=== PATIENT | male | born 1945 | race Caucasian/White ===

== ENCOUNTER 2017-01-07 11:36 | Inpatient (IN) | payer OTHER ==
[~2017-01-07] VITALS: Ht 185.4 cm; Wt 136.6 kg
[~2017-01-07 11:36] MED LIST: ACTOS30 MG PO; ALPH-E400 UNIT PO; ALPHA LIPOIC A200 MG PO; APRESOLINE50 MG PO; ASPIRIN81 M2 PO; AVAPRO300 MG PO; BACTRIM,SEPT1 TABLET PO; CATAPRES0.1 MG PO; CIPRO500 MG PO; CLEOCIN150 MG PO; COUMADIN,JANTO1.5 MG PO; COUMADIN,JANTO2.5 MG PO; COUMADIN2 MG PO; EFFER-K 20 MEQ20 MEQ PO; ENALAPRIL MALEA20 M1 PO; ENALAPRIL MALEA20 MG PO; FISH OIL 1,2001 EAC4 PO; FLOMAX0.4 MG PO; FORMULA E400 UNIT PO; FUROSEMIDE80 MG PO; GLIMEPIRIDE2 MG PO; HUMALOG100 UNIT/1 SC; HYDRALAZINE HCL50 M1 PO; HYDRALAZINE HCL50 MG PO; JANUVIA100 MG PO; KLOR-CON M2020 MEQ PO; KLOR-CON20 MEQ PO; LANOXIN PO; LANOXIN,DIGIT0.25 MG PO; LANOXIN250 MCG PO; LASIX40 MG PO; LYRICA150 MG PO; METOPROLOL SUC100 MG PO; METOPROLOL TAR100 MG PO; NASAL SPRAY30 ML NS; NOVOLIN N100 UNITS/ SC; PRAVASTATIN SOD40 MG PO; PRAVASTATIN SOD80 MG PO; SPIRONOLACTONE MC; SPIRONOLACTONE25 MG PO; TAMSULOSIN HCL0.4 MG PO; TOPROL XL100 MG PO; TRICOR145 MG PO; TYLENOL EXTRA500 MG PO; VASOTEC10 MG PO; VITAMIN D22000 UNIT PO; VITAMIN E400 UNIT PO; ZETIA10 MG PO; [UNRECOGNIZED DRUG - OTHER] SQ
[2017-01-07 13:29] LABS: BASOPHIL COUNT 0.1 K/uL (0-0.1); EOSINOPHIL (%) 0 % (0-5); IMMATURE GRANULOCYTE (%) 1.8 % (0.0-0.7); IMMATURE GRANULOCYTE COUNT 0.7 K/uL; INSTRUMENT ABS NEUTROPHIL CT 33.5 K/uL; LYMPHOCYTE COUNT 0.7 K/uL (1.0-2.8); MEAN PLAT.VOLUME 10.8 uM^3 (9.0-12.4); MONOCYTE COUNT 4.3 K/uL (0-0.8); NEUTROPHIL (%) 85.3 % (45-76); NEUTROPHIL COUNT 33.5 K/uL (1.8-6.4); PLATELET COUNT 193 K/uL (156-360)
[2017-01-07 13:35] LABS: MCH 32.4 PG (29.0-34.0); MCHC 33.1 G/DL (30.0-36.0); MCV 97.8 FL (86-99); RBC DIS.WIDTH-CV 15.4 % (11.8-14.6); RED BLOOD COUNT 3.58 M/uL (4.00-5.50); WHITE BLOOD COUNT 39.3 K/uL (4.1-10.2)
[2017-01-07 13:36] LABS: PROTHROMBIN TIME 34.2 SEC (10.2-12.9)
[2017-01-07 13:38] LABS: PTT 37.3 SEC (25-37)
[2017-01-07 13:43] LABS: CHLORIDE 101 mEq/L (99-109); POTASSIUM 4.5 mEq/L (3.7-5.4); SODIUM 135 mEq/L (136-147)
[2017-01-07 13:45] LABS: GLUCOSE 215 mg/dL (70-99)
[2017-01-07 13:46] LABS: ANION GAP 13 MEQ/L (2-14)
[2017-01-07 13:49] LABS: ALKALINE PHOSPHATASE 51 IU/L (3-129); GFR ESTIMATE (CALCULATED) 26 mL/min/
[2017-01-07 13:50] LABS: UREA NITROGEN (BUN) 49 mg/dL (9-23)
[2017-01-07 14:01] LABS: TOTAL BILIRUBIN 1.7 mg/dL (0.0-1.0)
[2017-01-07 15:25] LABS: C-REACTIVE PROTEIN > 240.0 MG/L (0-10); SAMPLE HEMOLYSIS CHECK 0; SAMPLE ICTERIC CHECK 0; SAMPLE LIPEMIA CHECK 0
[2017-01-07] MEDS ORDERED: FUROSEMIDE80 MG PO (15:48)
[2017-01-07] MEDS ORDERED: HUMALOG100 UNIT/1 SC ×2 (15:49→15:51)
[2017-01-07] MEDS ORDERED: OXYBUTYNIN CHLO10 MG PO (15:56)
[2017-01-07] MEDS ORDERED: ALLOPURINOL300 MG PO (15:58)
[2017-01-07] MEDS ORDERED: ATORVASTATIN CA80 MG PO (15:59)
[2017-01-07] MEDS ORDERED: VITAMIN B-6100 MG PO (16:06)
[2017-01-07] MEDS ORDERED: NASAL SPRAY SIN30 ML BOTH NARES (16:10)
[2017-01-07] MEDS ORDERED: VITAMIN B-12250 MCG PO (16:10)
[2017-01-07 20:27] VITALS: BP 171/74
[2017-01-07 21:08] LABS: POINT-OF-CARE METER ID UU14174225
[2017-01-08] VITALS (7 sets, daily range): BP systolic 100–161; BP diastolic 48–67
[2017-01-08 07:07] LABS: MEAN PLAT.VOLUME 11.3 uM^3 (9.0-12.4); PLATELET COUNT 183 K/uL (156-360)
[2017-01-08 07:11] LABS: HEMATOCRIT 31.9 % (38.0-50.0); MCH 32.5 PG (29.0-34.0); MCHC 32.6 G/DL (30.0-36.0); MCV 99.7 FL (86-99); RBC DIS.WIDTH-CV 15.7 % (11.8-14.6); RBC DIS.WIDTH-SD 56.7 % (39-53)
[2017-01-08 07:17] LABS: WHITE BLOOD COUNT 35.4 K/uL (4.1-10.2)
[2017-01-08 07:20] LABS: INTER. NORMALIZED RATIO 2.8; PROTHROMBIN TIME 32.6 SEC (10.2-12.9)
[2017-01-08 07:27] LABS: ANION GAP 11 MEQ/L (2-14); CHLORIDE 103 MEQ/L (99-109); GFR ESTIMATE (CALCULATED) 21 mL/min/; GLUCOSE 121 mg/dL (70-99); POTASSIUM 4.2 MEQ/L (3.7-5.4); SAMPLE HEMOLYSIS CHECK 0; SAMPLE ICTERIC CHECK 0; SAMPLE LIPEMIA CHECK 0; SODIUM 139 MEQ/L (136-147); UREA NITROGEN (BUN) 58 mg/dL (9-23)
[2017-01-08 08:24] LABS: POINT-OF-CARE METER ID UU13113717
[2017-01-08 12:06] LABS: POINT-OF-CARE METER ID UU14174225
[2017-01-08 16:23] LABS: POINT-OF-CARE METER ID UU14174225
[2017-01-08 21:18] LABS: POINT-OF-CARE METER ID UU14174225
[2017-01-09 04:02] VITALS: BP 122/52
[2017-01-09 07:19] LABS: EOSINOPHIL (%) 0 % (0-5); IMMATURE GRANULOCYTE (%) 2.1 % (0.0-0.7); IMMATURE GRANULOCYTE COUNT 0.6 K/uL; INSTRUMENT ABS NEUTROPHIL CT 26.3 K/uL; LYMPHOCYTE COUNT 0.8 K/uL (1.0-2.8); MEAN PLAT.VOLUME 11.1 uM^3 (9.0-12.4); MONOCYTE (%) 9.2 % (3-12); MONOCYTE COUNT 2.8 K/uL (0-0.8); NEUTROPHIL (%) 86.1 % (45-76); NEUTROPHIL COUNT 26.3 K/uL (1.8-6.4); PLATELET COUNT 207 K/uL (156-360)
[2017-01-09 07:40] LABS: HEMATOCRIT 29.4 % (38.0-50.0); MCH 31.9 PG (29.0-34.0); MCHC 32.7 G/DL (30.0-36.0); MCV 97.7 FL (86-99); RBC DIS.WIDTH-CV 15.4 % (11.8-14.6); RBC DIS.WIDTH-SD 55.3 % (39-53); RED BLOOD COUNT 3.01 M/uL (4.00-5.50)
[2017-01-09 07:41] LABS: WHITE BLOOD COUNT 30.6 K/uL (4.1-10.2)
[2017-01-09 08:00] VITALS: BP 113/51
[2017-01-09 08:05] LABS: ANION GAP 12 MEQ/L (2-14); CHLORIDE 104 MEQ/L (99-109); GFR ESTIMATE (CALCULATED) 24 mL/min/; GLUCOSE 101 mg/dL (70-99); POTASSIUM 4.5 MEQ/L (3.7-5.4); SAMPLE HEMOLYSIS CHECK 0; SAMPLE ICTERIC CHECK 0; SAMPLE LIPEMIA CHECK 0; SODIUM 138 MEQ/L (136-147); UREA NITROGEN (BUN) 67 mg/dL (9-23)
[2017-01-09 11:45] LABS: POINT-OF-CARE METER ID UU14174225
[2017-01-09 12:00] VITALS: BP 116/58
[2017-01-09 12:18] LABS: INTER. NORMALIZED RATIO 2.5
[2017-01-09 16:10] VITALS: BP 178/77
[2017-01-09 16:12] LABS: POINT-OF-CARE METER ID UU13113717
[2017-01-09 19:32] VITALS: BP 146/61
[2017-01-09 20:55] LABS: POINT-OF-CARE METER ID UU13113717
[2017-01-09 23:59] VITALS: BP 130/58
[2017-01-10 04:09] VITALS: BP 114/50
[2017-01-10 07:10] LABS: INTER. NORMALIZED RATIO 2.8; PROTHROMBIN TIME 31.7 SEC (10.2-12.9)
[2017-01-10 07:39] LABS: ERTH.SED.RATE 79 MM/HR (0-20)
[2017-01-10 08:00] VITALS: BP 151/64
[2017-01-10 08:00] LABS: POINT-OF-CARE METER ID UU13113717
[2017-01-10 08:32] LABS: ANION GAP 10 MEQ/L (2-14); CHLORIDE 107 MEQ/L (99-109); POTASSIUM 4.5 MEQ/L (3.7-5.4); SAMPLE HEMOLYSIS CHECK 0; SAMPLE ICTERIC CHECK 0; SAMPLE LIPEMIA CHECK 0; SODIUM 138 MEQ/L (136-147)
[2017-01-10 08:37] LABS: GFR ESTIMATE (CALCULATED) 24 mL/min/; GLUCOSE 122 mg/dL (70-99); UREA NITROGEN (BUN) 70 mg/dL (9-23)
[2017-01-10 10:58] LABS: BASOPHIL COUNT 0.1 K/uL (0-0.1); EOSINOPHIL (%) 0.1 % (0-5); IMMATURE GRANULOCYTE (%) 0.8 % (0.0-0.7); IMMATURE GRANULOCYTE COUNT 0.2 K/uL; INSTRUMENT ABS NEUTROPHIL CT 21.6 K/uL; LYMPHOCYTE COUNT 0.8 K/uL (1.0-2.8); MCH 31.9 PG (29.0-34.0); MCHC 32.3 G/DL (30.0-36.0); MEAN PLAT.VOLUME 11.6 uM^3 (9.0-12.4); MONOCYTE (%) 9.7 % (3-12); MONOCYTE COUNT 2.4 K/uL (0-0.8); NEUTROPHIL (%) 86.1 % (45-76); NEUTROPHIL COUNT 21.6 K/uL (1.8-6.4); PLATELET COUNT 225 K/uL (156-360); RBC DIS.WIDTH-CV 15.8 % (11.8-14.6); RBC DIS.WIDTH-SD 56.2 % (39-53); RED BLOOD COUNT 3.13 M/uL (4.00-5.50); WHITE BLOOD COUNT 25.1 K/uL (4.1-10.2)
[2017-01-10 12:00] VITALS: BP 149/67
[2017-01-10 12:34] LABS: POINT-OF-CARE METER ID UU13113717
[2017-01-10 16:02] VITALS: BP 167/63
[2017-01-10 16:51] LABS: POINT-OF-CARE METER ID UU14174225
[2017-01-10 20:00] VITALS: BP 139/63
[2017-01-10 22:10] LABS: POINT-OF-CARE METER ID UU13113717
[2017-01-10 23:58] VITALS: BP 123/57
[2017-01-11 06:57] LABS: PROTHROMBIN TIME 34.7 SEC (10.2-12.9)
[2017-01-11 07:00] LABS: BASOPHIL COUNT 0.1 K/uL (0-0.1); EOSINOPHIL (%) 0 % (0-5); HEMATOCRIT 30.2 % (38.0-50.0); IMMATURE GRANULOCYTE (%) 1.2 % (0.0-0.7); IMMATURE GRANULOCYTE COUNT 0.4 K/uL; INSTRUMENT ABS NEUTROPHIL CT 25.3 K/uL; LYMPHOCYTE COUNT 0.6 K/uL (1.0-2.8); MCH 32.3 PG (29.0-34.0); MCHC 33.1 G/DL (30.0-36.0); MCV 97.4 FL (86-99); MEAN PLAT.VOLUME 10.9 uM^3 (9.0-12.4); MONOCYTE (%) 8.5 % (3-12); MONOCYTE COUNT 2.5 K/uL (0-0.8); NEUTROPHIL (%) 87.9 % (45-76); NEUTROPHIL COUNT 25.3 K/uL (1.8-6.4); PLATELET COUNT 239 K/uL (156-360); RBC DIS.WIDTH-CV 15.4 % (11.8-14.6); RBC DIS.WIDTH-SD 55.1 % (39-53); WHITE BLOOD COUNT 28.7 K/uL (4.1-10.2)
[2017-01-11 07:21] LABS: ANION GAP 10 MEQ/L (2-14); CHLORIDE 105 MEQ/L (99-109); GFR ESTIMATE (CALCULATED) 25 mL/min/; POTASSIUM 4.5 MEQ/L (3.7-5.4); SAMPLE HEMOLYSIS CHECK 0; SAMPLE ICTERIC CHECK 0; SAMPLE LIPEMIA CHECK 0; SODIUM 137 MEQ/L (136-147); UREA NITROGEN (BUN) 67 mg/dL (9-23)
[2017-01-11 07:33] LABS: GLUCOSE 78 mg/dL (70-99)
[2017-01-11 08:16] VITALS: BP 156/63
[2017-01-11 08:31] LABS: POINT-OF-CARE METER ID UU14174225
[2017-01-11 12:33] LABS: POINT-OF-CARE METER ID UU13113717
[2017-01-11 14:56] VITALS: BP 132/63
[2017-01-11 15:10] VITALS: BP 132/63
[2017-01-11 15:29] VITALS: BP 146/65
[2017-01-11 15:31] VITALS: BP 147/64
[2017-01-11 16:28] VITALS: BP 137/65
[2017-01-11 17:26] LABS: POINT-OF-CARE METER ID UU13113717
[2017-01-11 18:35] LABS: POINT-OF-CARE METER ID UU13113675; POINT-OF-CARE USER ID 515036437
[2017-01-11 19:30] LABS: POINT-OF-CARE METER ID UU13113675; POINT-OF-CARE USER ID 515036437
[2017-01-11 21:50] LABS: POINT-OF-CARE METER ID UU13113717
[2017-01-12 00:25] VITALS: BP 125/57
[2017-01-12 06:51] LABS: INTER. NORMALIZED RATIO 3.1
[2017-01-12 06:52] LABS: HEMATOCRIT 28.9 % (38.0-50.0); MCH 31.6 PG (29.0-34.0); MCHC 32.2 G/DL (30.0-36.0); MCV 98.3 FL (86-99); MEAN PLAT.VOLUME 10.6 uM^3 (9.0-12.4); NRBC (%) 0.1 /100 WBC (0-0); PLATELET COUNT 262 K/uL (156-360); RBC DIS.WIDTH-CV 15.4 % (11.8-14.6); RBC DIS.WIDTH-SD 55.9 % (39-53); RED BLOOD COUNT 2.94 M/uL (4.00-5.50)
[2017-01-12 07:13] LABS: ANION GAP 10 MEQ/L (2-14); CHLORIDE 106 MEQ/L (99-109); GFR ESTIMATE (CALCULATED) 30 mL/min/; POTASSIUM 4.4 MEQ/L (3.7-5.4); SAMPLE HEMOLYSIS CHECK 0; SAMPLE ICTERIC CHECK 0; SAMPLE LIPEMIA CHECK 0; SODIUM 140 MEQ/L (136-147); UREA NITROGEN (BUN) 70 mg/dL (9-23)
[2017-01-12 07:17] VITALS: BP 135/61
[2017-01-12 07:18] LABS: GLUCOSE 104 mg/dL (70-99)
[2017-01-12 12:57] LABS: POINT-OF-CARE METER ID UU13113717
[2017-01-12 13:17] VITALS: BP 185/82
[2017-01-12 15:07] VITALS: BP 129/58
[2017-01-12 18:00] LABS: POINT-OF-CARE METER ID UU13113717
[2017-01-12 19:58] LABS: POINT-OF-CARE METER ID UU14174225
[2017-01-12 21:28] LABS: POINT-OF-CARE METER ID UU13113717
[2017-01-13 01:09] VITALS: BP 122/52
[2017-01-13 06:57] LABS: HEMATOCRIT 27.3 % (38.0-50.0); MCH 31.4 PG (29.0-34.0); MCHC 32.2 G/DL (30.0-36.0); MCV 97.5 FL (86-99); MEAN PLAT.VOLUME 10.6 uM^3 (9.0-12.4); NRBC (%) 0.1 /100 WBC (0-0); PLATELET COUNT 296 K/uL (156-360); RBC DIS.WIDTH-CV 15.4 % (11.8-14.6); RBC DIS.WIDTH-SD 55.2 % (39-53)
[2017-01-13 07:02] VITALS: BP 136/63
[2017-01-13 07:30] LABS: ANION GAP 7 MEQ/L (2-14); CHLORIDE 106 MEQ/L (99-109); GFR ESTIMATE (CALCULATED) 33 mL/min/; POTASSIUM 4.8 MEQ/L (3.7-5.4); SAMPLE HEMOLYSIS CHECK 0; SAMPLE ICTERIC CHECK 0; SAMPLE LIPEMIA CHECK 0; SODIUM 139 MEQ/L (136-147); UREA NITROGEN (BUN) 70 mg/dL (9-23)
[2017-01-13 07:32] LABS: GLUCOSE 62 mg/dL (70-99)
[2017-01-13 07:34] LABS: INTER. NORMALIZED RATIO 3.5; PROTHROMBIN TIME 39.8 SEC (10.2-12.9)
[2017-01-13 11:59] LABS: POINT-OF-CARE METER ID UU13113717
[2017-01-13 12:18] LABS: MCV 98.3 FL (86-99)
[2017-01-13 16:36] VITALS: BP 155/77
[2017-01-13 16:53] LABS: POINT-OF-CARE METER ID UU14174225
[2017-01-13 21:13] LABS: POINT-OF-CARE METER ID UU14174225
[2017-01-14 00:21] VITALS: BP 141/63
[2017-01-14 06:53] LABS: HEMATOCRIT 28.3 % (38.0-50.0); MCH 31.6 PG (29.0-34.0); MCHC 32.5 G/DL (30.0-36.0); MCV 97.3 FL (86-99); MEAN PLAT.VOLUME 10.4 uM^3 (9.0-12.4); NRBC (%) 0.1 /100 WBC (0-0); PLATELET COUNT 348 K/uL (156-360); RBC DIS.WIDTH-CV 15.2 % (11.8-14.6); RBC DIS.WIDTH-SD 54.8 % (39-53); RED BLOOD COUNT 2.91 M/uL (4.00-5.50); WHITE BLOOD COUNT 21.4 K/uL (4.1-10.2)
[2017-01-14 06:59] LABS: INTER. NORMALIZED RATIO 3.3; PROTHROMBIN TIME 37.9 SEC (10.2-12.9)
[2017-01-14 07:25] LABS: ANION GAP 13 MEQ/L (2-14); C-REACTIVE PROTEIN > 240.0 MG/L (0-10); CHLORIDE 106 MEQ/L (99-109); GFR ESTIMATE (CALCULATED) 35 mL/min/ (58.99-99999); POTASSIUM 4.8 MEQ/L (3.7-5.4); SAMPLE HEMOLYSIS CHECK 0; SAMPLE ICTERIC CHECK 0; SAMPLE LIPEMIA CHECK 0; SODIUM 141 MEQ/L (136-147); UREA NITROGEN (BUN) 66 mg/dL (9-23)
[2017-01-14 07:29] LABS: GLUCOSE 123 mg/dL (70-99)
[2017-01-14 07:49] VITALS: BP 139/63
[2017-01-14 12:08] LABS: POINT-OF-CARE METER ID UU13113717
[2017-01-14 15:49] VITALS: BP 125/70
[2017-01-14 17:15] LABS: POINT-OF-CARE METER ID UU14174225
[2017-01-14 20:52] LABS: POINT-OF-CARE METER ID UU13113717
[2017-01-14 23:50] VITALS: BP 142/61
[2017-01-15 06:36] LABS: HEMATOCRIT 28.1 % (38.0-50.0); MCHC 32.4 G/DL (30.0-36.0); MCV 98.9 FL (86-99); MEAN PLAT.VOLUME 10.2 uM^3 (9.0-12.4); NRBC (%) 0.2 /100 WBC (0-0); PLATELET COUNT 367 K/uL (156-360); RBC DIS.WIDTH-CV 15.4 % (11.8-14.6); RBC DIS.WIDTH-SD 55.5 % (39-53); RED BLOOD COUNT 2.84 M/uL (4.00-5.50); WHITE BLOOD COUNT 21.2 K/uL (4.1-10.2)
[2017-01-15 06:51] LABS: PROTHROMBIN TIME 34.5 SEC (10.2-12.9)
[2017-01-15 06:57] VITALS: BP 138/63
[2017-01-15 07:01] LABS: ANION GAP 4 MEQ/L (2-14); CHLORIDE 106 MEQ/L (99-109); GFR ESTIMATE (CALCULATED) 38 mL/min/ (58.99-99999); GLUCOSE 98 mg/dL (70-99); POTASSIUM 5.5 MEQ/L (3.7-5.4); SAMPLE HEMOLYSIS CHECK 2; SAMPLE ICTERIC CHECK 0; SAMPLE LIPEMIA CHECK 0; SODIUM 137 MEQ/L (136-147); UREA NITROGEN (BUN) 60 mg/dL (9-23)
[2017-01-15 11:07] LABS: POINT-OF-CARE METER ID UU13113717
[2017-01-15 12:59] LABS: ANION GAP 8 MEQ/L (2-14); CHLORIDE 105 MEQ/L (99-109); GFR ESTIMATE (CALCULATED) 40 mL/min/ (58.99-99999); GLUCOSE 192 mg/dL (70-99); POTASSIUM 5.1 MEQ/L (3.7-5.4); SAMPLE HEMOLYSIS CHECK 0; SAMPLE ICTERIC CHECK 0; SAMPLE LIPEMIA CHECK 0; SODIUM 138 MEQ/L (136-147); UREA NITROGEN (BUN) 59 mg/dL (9-23)
[2017-01-15 15:07] VITALS: BP 140/81
[2017-01-15 16:14] LABS: POINT-OF-CARE METER ID UU13113717
[2017-01-15 21:12] LABS: POINT-OF-CARE METER ID UU13113717
[2017-01-16 00:15] VITALS: BP 151/72
[2017-01-16 06:11] LABS: HEMATOCRIT 28.4 % (38.0-50.0); MCH 32.6 PG (29.0-34.0); MCHC 33.1 G/DL (30.0-36.0); MCV 98.6 FL (86-99); MEAN PLAT.VOLUME 10.4 uM^3 (9.0-12.4); NRBC (%) 0.1 /100 WBC (0-0); PLATELET COUNT 396 K/uL (156-360); RBC DIS.WIDTH-CV 15.5 % (11.8-14.6); RED BLOOD COUNT 2.88 M/uL (4.00-5.50); WHITE BLOOD COUNT 21.4 K/uL (4.1-10.2)
[2017-01-16 06:29] LABS: INTER. NORMALIZED RATIO 2.6; PROTHROMBIN TIME 29.6 SEC (10.2-12.9)
[2017-01-16 06:40] LABS: ANION GAP 8 MEQ/L (2-14); CHLORIDE 106 MEQ/L (99-109); GFR ESTIMATE (CALCULATED) 43 mL/min/ (58.99-99999); GLUCOSE 68 mg/dL (70-99); POTASSIUM 5.4 MEQ/L (3.7-5.4); SAMPLE HEMOLYSIS CHECK 0; SAMPLE ICTERIC CHECK 0; SAMPLE LIPEMIA CHECK 0; SODIUM 140 MEQ/L (136-147); UREA NITROGEN (BUN) 55 mg/dL (9-23)
[2017-01-16 07:00] VITALS: BP 145/66
[2017-01-16 11:03] LABS: POINT-OF-CARE METER ID UU13113717
[2017-01-16 15:05] VITALS: BP 137/74
[2017-01-16 16:20] LABS: POINT-OF-CARE METER ID UU13113717
[2017-01-16 20:45] VITALS: BP 154/72
[2017-01-16 21:00] LABS: POINT-OF-CARE METER ID UU13113717
[2017-01-17 00:20] VITALS: BP 126/58
[2017-01-17 07:03] LABS: HEMATOCRIT 28.4 % (38.0-50.0); MCH 31.9 PG (29.0-34.0); MCHC 32.4 G/DL (30.0-36.0); MCV 98.6 FL (86-99); MEAN PLAT.VOLUME 10.1 uM^3 (9.0-12.4); PLATELET COUNT 391 K/uL (156-360); RBC DIS.WIDTH-CV 15.4 % (11.8-14.6); RBC DIS.WIDTH-SD 54.8 % (39-53); RED BLOOD COUNT 2.88 M/uL (4.00-5.50); WHITE BLOOD COUNT 19.1 K/uL (4.1-10.2)
[2017-01-17 07:36] LABS: POINT-OF-CARE METER ID UU13113717
[2017-01-17 07:37] VITALS: BP 165/78
[2017-01-17 07:40] LABS: INTER. NORMALIZED RATIO 2.1; PROTHROMBIN TIME 24.2 SEC (10.2-12.9)
[2017-01-17 07:41] LABS: ANION GAP 8 MEQ/L (2-14); CHLORIDE 105 MEQ/L (99-109); GFR ESTIMATE (CALCULATED) 46 mL/min/ (58.99-99999); POTASSIUM 5.5 MEQ/L (3.7-5.4); SAMPLE HEMOLYSIS CHECK 0; SAMPLE ICTERIC CHECK 0; SAMPLE LIPEMIA CHECK 0; SODIUM 138 MEQ/L (136-147); UREA NITROGEN (BUN) 48 mg/dL (9-23)
[2017-01-17 07:42] LABS: GLUCOSE 146 mg/dL (70-99)
[2017-01-17 11:26] LABS: POINT-OF-CARE METER ID UU13113717
[2017-01-17 12:28] LABS: POINT-OF-CARE METER ID UU14174225
[2017-01-17 14:40] LABS: ANION GAP 8 MEQ/L (2-14); CHLORIDE 104 MEQ/L (99-109); GFR ESTIMATE (CALCULATED) 49 mL/min/ (58.99-99999); GLUCOSE 119 mg/dL (70-99); SAMPLE HEMOLYSIS CHECK 1; SAMPLE ICTERIC CHECK 0; SAMPLE LIPEMIA CHECK 0; SODIUM 140 MEQ/L (136-147); UREA NITROGEN (BUN) 46 mg/dL (9-23)
[2017-01-17 16:56] VITALS: BP 145/83
[2017-01-17 17:20] LABS: POINT-OF-CARE METER ID UU14174225
[2017-01-17 20:36] LABS: POINT-OF-CARE METER ID UU14174225
[2017-01-18 00:33] VITALS: BP 143/63
[2017-01-18 06:37] LABS: HEMATOCRIT 28.5 % (38.0-50.0); MCH 31.7 PG (29.0-34.0); MCHC 31.6 G/DL (30.0-36.0); MCV 100.4 FL (86-99); MEAN PLAT.VOLUME 10.1 uM^3 (9.0-12.4); PLATELET COUNT 421 K/uL (156-360); RBC DIS.WIDTH-CV 15.4 % (11.8-14.6); RBC DIS.WIDTH-SD 56.4 % (39-53); RED BLOOD COUNT 2.84 M/uL (4.00-5.50)
[2017-01-18 07:00] LABS: INTER. NORMALIZED RATIO 1.9; PROTHROMBIN TIME 21.4 SEC (10.2-12.9)
[2017-01-18 07:08] LABS: ANION GAP 4 MEQ/L (2-14); CHLORIDE 106 MEQ/L (99-109); GFR ESTIMATE (CALCULATED) 49 mL/min/ (58.99-99999); POTASSIUM 4.9 MEQ/L (3.7-5.4); SAMPLE HEMOLYSIS CHECK 0; SAMPLE ICTERIC CHECK 0; SAMPLE LIPEMIA CHECK 0; SODIUM 141 MEQ/L (136-147); UREA NITROGEN (BUN) 43 mg/dL (9-23)
[2017-01-18 07:10] LABS: GLUCOSE 77 mg/dL (70-99)
[2017-01-18 07:42] VITALS: BP 151/67
[2017-01-18 08:17] LABS: POINT-OF-CARE METER ID UU13113717
[2017-01-18] MEDS ORDERED: ACIDOPHILUS LA1 EACH PO (11:48)
[2017-01-18] MEDS ORDERED: TRAMADOL HCL50 MG PO (11:49)
[2017-01-18] MEDS ORDERED: TYLENOL REGULA325 MG PO (11:49)
[2017-01-18 12:42] LABS: POINT-OF-CARE METER ID UU13113717
== END 2017-01-18 16:01 | DRG 982 ==
LOC: EME 11:36 → 5SOUTH 14:13 → EDOF 14:13 → ENRESERV 14:41 → 5SOUTH 18:04 → ENRESERV 18:10 → 5SOUTH 01-18 16:01
PROVIDERS: Hospitalist; Internal Medicine; Internal Medicine Infectious Disease; Nurse Practitioner Adult Health; Physician Assistant; Physician Assistant Medical
PROC: 30233K1 Transfusion of Nonautologous Frozen Plasma into Peripheral Vein, Percutaneous Approach (ICD-10-PCS; principal; 2017-01-11)
PROC: 0KBW0ZZ Excision of Left Foot Muscle, Open Approach (ICD-10-PCS; principal; 2017-01-11)
DX: E11.621 Type 2 diabetes mellitus with foot ulcer (principal); L97.529 Non-pressure chronic ulcer of other part of left foot with unspecified severity; I42.9 Cardiomyopathy, unspecified; E11.22 Type 2 diabetes mellitus with diabetic chronic kidney disease; E11.42 Type 2 diabetes mellitus with diabetic polyneuropathy; E11.51 Type 2 diabetes mellitus with diabetic peripheral angiopathy without gangrene; E11.628 Type 2 diabetes mellitus with other skin complications; I13.0 Hypertensive heart and chronic kidney disease with heart failure and stage 1 through stage 4 chronic kidney disease, or unspecified chronic kidney disease; I50.22 Chronic systolic (congestive) heart failure; I48.91 Unspecified atrial fibrillation; N18.4 Chronic kidney disease, stage 4 (severe); E87.5 Hyperkalemia; L03.116 Cellulitis of left lower limb; M25.562 Pain in left knee; E66.9 Obesity, unspecified; K59.00 Constipation, unspecified; D72.829 Elevated white blood cell count, unspecified; G89.29 Other chronic pain; M25.561 Pain in right knee; N20.0 Calculus of kidney; D64.9 Anemia, unspecified; E78.5 Hyperlipidemia, unspecified; L30.9 Dermatitis, unspecified; I25.10 Atherosclerotic heart disease of native coronary artery without angina pectoris; Z95.5 Presence of coronary angioplasty implant and graft; M79.605 Pain in left leg; L97.429 Non-pressure chronic ulcer of left heel and midfoot with unspecified severity; M17.10 Unilateral primary osteoarthritis, unspecified knee; M79.604 Pain in right leg; Z95.0 Presence of cardiac pacemaker; Z79.4 Long term (current) use of insulin; Z88.1 Allergy status to other antibiotic agents; Z88.8 Allergy status to other drugs, medicaments and biological substances; Z95.810 Presence of automatic (implantable) cardiac defibrillator; Z87.442 Personal history of urinary calculi; Z89.422 Acquired absence of other left toe(s); Z79.01 Long term (current) use of anticoagulants; Z68.39 Body mass index [BMI] 39.0-39.9, adult; Z85.820 Personal history of malignant melanoma of skin; Z87.891 Personal history of nicotine dependence; Z99.2 Dependence on renal dialysis; Z90.49 Acquired absence of other specified parts of digestive tract
CPT/HCPCS: 73560; 73630; 76937; 78315; 78999; 80048; 80048 91; 80053; 80069; 80202; 82948; 83605; 85014; 85018; 85025; 85027; 85610; 85651; 85730; 86140; 86850; 86900; 86901; 87040; 87070; 87075; 87076; 87077; 87147; 87186; 87205; 93005; 93926; 97530 GO; 97530 GP; 99281; 99285; A9503; C1894; J0610; J0690; J1815; J2250; J2543; J3010; J3370; J7030; J7040; J7050; P9017

== ENCOUNTER → 2017-02-09 | Outpatient (CLI) | payer OTHER ==
[~2017-02-09] MED LIST changes: +ACIDOPHILUS LA1 EACH PO; +ALLOPURINOL300 MG PO; +ATORVASTATIN CA80 MG PO; +NASAL SPRAY SIN30 ML BOTH NARES; +OXYBUTYNIN CHLO10 MG PO; +TRAMADOL HCL50 MG PO; +TYLENOL REGULA325 MG PO; +VITAMIN B-12250 MCG PO; +VITAMIN B-6100 MG PO
== END ==
LOC: PICC 12:42
DX: L03.116 Cellulitis of left lower limb (principal); L02.612 Cutaneous abscess of left foot
CPT/HCPCS: 76937; C1894

== ENCOUNTER → 2017-02-22 | Outpatient (CLI) | payer OTHER | LOC: PICC 08:19 | DX: L03.116 Cellulitis of left lower limb (principal); L02.612 Cutaneous abscess of left foot | CPT/HCPCS: 71045 ==

== ENCOUNTER 2017-03-11 15:37 | Inpatient (IN) | payer OTHER ==
[~2017-03-11] VITALS: Ht 188 cm; Wt 131.0 kg
[~2017-03-11 15:37] MED LIST changes: +HUMALOG100 UNIT/2 SC; +HUMULIN N100 UNIT/2 SC; -NOVOLIN N100 UNITS/ SC
[2017-03-11 17:12] LABS: BASOPHIL (%) 0.2 % (0-1); EOSINOPHIL (%) 2.7 % (0-5); EOSINOPHIL COUNT 0.3 K/uL (0-0.3); HEMATOCRIT 31.4 % (38.0-50.0); HEMOGLOBIN 9.9 G/DL (12.5-16.6); IMMATURE GRANULOCYTE (%) 0.5 % (0.0-0.7); LYMPHOCYTE (%) 9.4 % (15-42); LYMPHOCYTE COUNT 0.9 K/uL (1.0-2.8); MCH 29.6 PG (29.0-34.0); MCHC 31.5 G/DL (30.0-36.0); MCV 93.7 FL (86-99); MONOCYTE (%) 8.7 % (3-12); MONOCYTE COUNT 0.9 K/uL (0-0.8); NEUTROPHIL (%) 78.5 % (45-76); NEUTROPHIL COUNT 7.9 K/uL (1.8-6.4); PLATELET COUNT 181 K/uL (156-360); RBC DIS.WIDTH-CV 18.1 % (11.8-14.6); RBC DIS.WIDTH-SD 61.1 % (39-53); RED BLOOD COUNT 3.35 M/uL (4.00-5.50)
[2017-03-11 17:22] LABS: ALBUMIN 2.4 g/dL (3.2-4.8); CHLORIDE 100 mEq/L (99-109); SODIUM 141 mEq/L (136-147)
[2017-03-11 17:23] LABS: MAGNESIUM 1.7 mg/dL (1.3-2.7)
[2017-03-11 17:24] LABS: GLUCOSE 106 mg/dL (70-99); PTT 47.7 SEC (25-37); TOTAL PROTEIN 6.8 g/dL (6.4-8.3)
[2017-03-11 17:26] LABS: TOTAL BILIRUBIN 0.2 mg/dL (0.0-1.0)
[2017-03-11 17:28] LABS: ALKALINE PHOSPHATASE 156 IU/L (3-129); CREATININE 6.9 mg/dL (0.6-1.3); GFR ESTIMATE (CALCULATED) 8 mL/min/ (58.99-99999)
[2017-03-11 17:29] LABS: UREA NITROGEN (BUN) 92 mg/dL (9-23)
[2017-03-11 17:30] LABS: AST (GOT) 31 IU/L (2-34)
[2017-03-11 17:31] LABS: ALT (GPT) < 3 IU/L (3-49)
[2017-03-11 17:35] LABS: TROP-I INTERPRETATION NEGATIVE; TROPONIN-I 0.08 ng/mL (0.0-0.30)
[2017-03-11 17:36] LABS: DIGOXIN 1.7 ng/mL (0.8-2.0)
[2017-03-11] MEDS ORDERED: ALPHA LIPOIC A200 M1 PO (17:37)
[2017-03-11] MEDS ORDERED: COLACE100 MG PO (17:39)
[2017-03-11 17:40] LABS: INTER. NORMALIZED RATIO 5.7
[2017-03-11] MEDS ORDERED: FLORASTOR250 MG PO (17:40)
[2017-03-11] MEDS ORDERED: DEMADEX20 MG PO (17:43)
[2017-03-11] MEDS ORDERED: CEFAZOLIN SODIUM1 GM IV (17:44)
[2017-03-11] MEDS ORDERED: APRESOLINE25 MG PO ×2 (17:47→17:49)
[2017-03-11] MEDS ORDERED: LOTRIMIN AF90 GM TP (17:48)
[2017-03-11] MEDS ORDERED: DULCOLAX10 MG PR (17:48)
[2017-03-11] MEDS ORDERED: TYLENOL REGULA325 MG PO (17:48)
[2017-03-11] MEDS ORDERED: DUONEB 2.5-0.5 M3 ML AEROSOL (17:49)
[2017-03-11] MEDS ORDERED: MIRALAX17 GM PO (17:50)
[2017-03-11] MEDS ORDERED: PHILLIPS'400 MG/5 M PO (17:50)
[2017-03-11] MEDS ORDERED: WARFARIN SODIU2.5 MG PO (18:02)
[2017-03-11] MEDS ORDERED: MEPHYTON5 MG PO (18:02)
[2017-03-11 19:12] LABS: CREATINE KINASE 33 IU/L (1-294); URIC ACID 4.8 mg/dL (3.1-9.2)
[2017-03-11 22:31] VITALS: BP 160/74
[2017-03-12 00:41] VITALS: BP 130/71
[2017-03-12 04:12] VITALS: BP 131/69
[2017-03-12 06:40] LABS: HEMATOCRIT 29.7 % (38.0-50.0); HEMOGLOBIN 9.2 G/DL (12.5-16.6); MCH 28.8 PG (29.0-34.0); MCV 92.8 FL (86-99); PLATELET COUNT 157 K/uL (156-360); RBC DIS.WIDTH-CV 18.2 % (11.8-14.6); RBC DIS.WIDTH-SD 61.1 % (39-53); WHITE BLOOD COUNT 9.5 K/uL (4.1-10.2)
[2017-03-12 06:50] VITALS: BP 143/78
[2017-03-12 07:04] LABS: CHLORIDE 101 MEQ/L (99-109); CREATININE 6.9 MG/DL (0.6-1.3); GFR ESTIMATE (CALCULATED) 8 mL/min/ (58.99-99999); INTER. NORMALIZED RATIO 3.9; POTASSIUM 3.6 MEQ/L (3.7-5.4); SODIUM 142 MEQ/L (136-147); UREA NITROGEN (BUN) 92 mg/dL (9-23)
[2017-03-12 07:09] LABS: GLUCOSE 73 mg/dL (70-99)
[2017-03-12 11:25] VITALS: BP 135/66
[2017-03-12 14:58] LABS: IRON 52 MCG/DL (35-150); TRANSFERRIN (TIBC) 114.1 mg/dL (215-380); TRANSFERRIN SATUR. 46 % (20-55)
[2017-03-12 15:41] VITALS: BP 154/78
[2017-03-12 22:35] VITALS: BP 135/61
[2017-03-13 03:44] VITALS: BP 121/67
[2017-03-13 07:13] VITALS: BP 126/61
[2017-03-13 07:19] LABS: ALBUMIN 2.4 G/DL (3.2-4.8); CHLORIDE 101 MEQ/L (99-109); CREATININE 5.8 MG/DL (0.6-1.3); GFR ESTIMATE (CALCULATED) 10 mL/min/ (58.99-99999); GLUCOSE 72 mg/dL (70-99); PHOSPHORUS 5.6 mg/dL (2.5-4.9); POTASSIUM 3.7 MEQ/L (3.7-5.4); SODIUM 140 MEQ/L (136-147); UREA NITROGEN (BUN) 74 mg/dL (9-23)
[2017-03-13 08:50] LABS: HEMOGLOBIN 9.3 G/DL (12.5-16.6); MCH 29.2 PG (29.0-34.0); MCV 94.3 FL (86-99); PLATELET COUNT 151 K/uL (156-360); RBC DIS.WIDTH-CV 18.4 % (11.8-14.6); RBC DIS.WIDTH-SD 62.3 % (39-53); RED BLOOD COUNT 3.18 M/uL (4.00-5.50); WHITE BLOOD COUNT 9.2 K/uL (4.1-10.2)
[2017-03-13 08:54] LABS: INTACT PARATHYROID HORMONE 297 pg/mL (10-69)
[2017-03-13 11:26] VITALS: BP 163/75
[2017-03-13 12:16] LABS: HEPATITIS B SURFACE ANTIGEN Nonreactive
[2017-03-13 12:17] LABS: HEPATITIS B SURFACE ANTIBODY Nonreactive
[2017-03-13 15:50] VITALS: BP 145/75
[2017-03-13 19:50] VITALS: BP 131/62
[2017-03-14 01:45] VITALS: BP 112/58
[2017-03-14 03:50] VITALS: BP 128/73
[2017-03-14 06:05] LABS: HEMATOCRIT 29.2 % (38.0-50.0); HEMOGLOBIN 9.2 G/DL (12.5-16.6); MCH 29.3 PG (29.0-34.0); MCHC 31.5 G/DL (30.0-36.0); NRBC (%) 0.3 /100 WBC (0-0); PLATELET COUNT 156 K/uL (156-360); RBC DIS.WIDTH-CV 18.3 % (11.8-14.6); RBC DIS.WIDTH-SD 61.2 % (39-53); RED BLOOD COUNT 3.14 M/uL (4.00-5.50); WHITE BLOOD COUNT 9.6 K/uL (4.1-10.2)
[2017-03-14 06:29] LABS: ALBUMIN 2.4 G/DL (3.2-4.8); CHLORIDE 103 MEQ/L (99-109); CREATININE 5.3 MG/DL (0.6-1.3); GFR ESTIMATE (CALCULATED) 11 mL/min/ (58.99-99999); GLUCOSE 79 mg/dL (70-99); PHOSPHORUS 4.7 mg/dL (2.5-4.9); POTASSIUM 4.1 MEQ/L (3.7-5.4); SODIUM 138 MEQ/L (136-147); UREA NITROGEN (BUN) 60 mg/dL (9-23)
[2017-03-14 06:51] LABS: INTER. NORMALIZED RATIO 2.3
[2017-03-14 15:20] VITALS: BP 131/71
[2017-03-14 21:22] VITALS: BP 137/65
[2017-03-14 23:43] VITALS: BP 130/78
[2017-03-15 07:09] LABS: ALBUMIN 2.5 G/DL (3.2-4.8); CHLORIDE 99 MEQ/L (99-109); CREATININE 4.9 MG/DL (0.6-1.3); GFR ESTIMATE (CALCULATED) 13 mL/min/ (58.99-99999); PHOSPHORUS 4.8 mg/dL (2.5-4.9); POTASSIUM 4.8 MEQ/L (3.7-5.4); SODIUM 133 MEQ/L (136-147); UREA NITROGEN (BUN) 46 mg/dL (9-23)
[2017-03-15 07:11] LABS: GLUCOSE 122 mg/dL (70-99)
[2017-03-15 07:19] LABS: HEMATOCRIT 30.5 % (38.0-50.0); HEMOGLOBIN 9.4 G/DL (12.5-16.6); MCHC 30.8 G/DL (30.0-36.0); MCV 94.1 FL (86-99); NRBC (%) 0.6 /100 WBC (0-0); PLATELET COUNT 138 K/uL (156-360); RBC DIS.WIDTH-CV 18.4 % (11.8-14.6); RBC DIS.WIDTH-SD 62.1 % (39-53); RED BLOOD COUNT 3.24 M/uL (4.00-5.50); WHITE BLOOD COUNT 10.4 K/uL (4.1-10.2)
[2017-03-15 07:29] VITALS: BP 158/74
[2017-03-15 16:05] VITALS: BP 137/82
[2017-03-15 23:05] VITALS: BP 123/64
[2017-03-16 06:38] LABS: HEMOGLOBIN 9.8 G/DL (12.5-16.6); MCH 29.9 PG (29.0-34.0); MCHC 31.6 G/DL (30.0-36.0); MCV 94.5 FL (86-99); NRBC (%) 1.5 /100 WBC (0-0); PLATELET COUNT 143 K/uL (156-360); RBC DIS.WIDTH-CV 18.6 % (11.8-14.6); RBC DIS.WIDTH-SD 63.5 % (39-53); RED BLOOD COUNT 3.28 M/uL (4.00-5.50); WHITE BLOOD COUNT 9.2 K/uL (4.1-10.2)
[2017-03-16 07:01] LABS: INTER. NORMALIZED RATIO 2.4
[2017-03-16 07:02] LABS: ALBUMIN 2.6 G/DL (3.2-4.8); CHLORIDE 98 MEQ/L (99-109); GFR ESTIMATE (CALCULATED) 10 mL/min/ (58.99-99999); PHOSPHORUS 6.1 mg/dL (2.5-4.9); POTASSIUM 5.1 MEQ/L (3.7-5.4); SODIUM 134 MEQ/L (136-147); UREA NITROGEN (BUN) 55 mg/dL (9-23)
[2017-03-16 07:03] LABS: GLUCOSE 77 mg/dL (70-99)
[2017-03-16 08:00] VITALS: BP 139/72
[2017-03-16 16:17] VITALS: BP 166/74
[2017-03-17 00:38] VITALS: BP 135/63
[2017-03-17 06:02] VITALS: BP 124/58
[2017-03-17 06:46] LABS: BASOPHIL (%) 0.3 % (0-1); EOSINOPHIL (%) 0.7 % (0-5); EOSINOPHIL COUNT 0.1 K/uL (0-0.3); HEMATOCRIT 29.5 % (38.0-50.0); HEMOGLOBIN 9.4 G/DL (12.5-16.6); IMMATURE GRANULOCYTE (%) 0.8 % (0.0-0.7); LYMPHOCYTE (%) 4.6 % (15-42); LYMPHOCYTE COUNT 0.5 K/uL (1.0-2.8); MCH 29.7 PG (29.0-34.0); MCHC 31.9 G/DL (30.0-36.0); MCV 93.4 FL (86-99); MONOCYTE (%) 8.8 % (3-12); NEUTROPHIL (%) 84.8 % (45-76); NEUTROPHIL COUNT 9.6 K/uL (1.8-6.4); PLATELET COUNT 147 K/uL (156-360); RBC DIS.WIDTH-CV 18.8 % (11.8-14.6); RBC DIS.WIDTH-SD 62.6 % (39-53); RED BLOOD COUNT 3.16 M/uL (4.00-5.50); WHITE BLOOD COUNT 11.3 K/uL (4.1-10.2)
[2017-03-17 06:50] LABS: INTER. NORMALIZED RATIO 2.9
[2017-03-17 07:11] LABS: ALBUMIN 2.4 G/DL (3.2-4.8); ALBUMIN 2.6 G/DL (3.2-4.8); ALKALINE PHOSPHATASE 161 IU/L (3-129); ALT (GPT) 3 IU/L (3-49); AST (GOT) 33 IU/L (2-34); CHLORIDE 96 MEQ/L (99-109); CHLORIDE 97 MEQ/L (99-109); GFR ESTIMATE (CALCULATED) 13 mL/min/ (58.99-99999); GLUCOSE 88 mg/dL (70-99); GLUCOSE 91 mg/dL (70-99); PHOSPHORUS 4.6 mg/dL (2.5-4.9); POTASSIUM 4.4 MEQ/L (3.7-5.4); POTASSIUM 4.6 MEQ/L (3.7-5.4); SODIUM 131 MEQ/L (136-147); SODIUM 133 MEQ/L (136-147); UREA NITROGEN (BUN) 38 mg/dL (9-23); UREA NITROGEN (BUN) 40 mg/dL (9-23)
[2017-03-17 07:12] LABS: CREATININE 4.8 MG/DL (0.6-1.3)
[2017-03-17 07:13] LABS: CREATININE 4.7 MG/DL (0.6-1.3); GFR ESTIMATE (CALCULATED) 13 mL/min/ (58.99-99999); TOTAL BILIRUBIN 0.5 MG/DL (0.0-1.0); TOTAL PROTEIN 7.1 G/DL (6.4-8.3)
[2017-03-17 07:28] VITALS: BP 137/69
[2017-03-17 11:12] VITALS: BP 147/77
[2017-03-17 16:51] VITALS: BP 145/74
[2017-03-17 23:44] VITALS: BP 128/70
[2017-03-18 00:22] VITALS: BP 120/64
[2017-03-18 06:57] LABS: INTER. NORMALIZED RATIO 3.3
[2017-03-18 07:47] VITALS: BP 152/79
[2017-03-18 23:02] VITALS: BP 137/60
[2017-03-19 08:25] LABS: BASOPHIL (%) 0.2 % (0-1); EOSINOPHIL (%) 0.6 % (0-5); EOSINOPHIL COUNT 0.1 K/uL (0-0.3); HEMATOCRIT 30.2 % (38.0-50.0); HEMOGLOBIN 9.5 G/DL (12.5-16.6); IMMATURE GRANULOCYTE (%) 0.6 % (0.0-0.7); LYMPHOCYTE (%) 6.5 % (15-42); LYMPHOCYTE COUNT 0.7 K/uL (1.0-2.8); MCH 29.1 PG (29.0-34.0); MCHC 31.5 G/DL (30.0-36.0); MCV 92.6 FL (86-99); MONOCYTE (%) 8.3 % (3-12); MONOCYTE COUNT 0.9 K/uL (0-0.8); NEUTROPHIL (%) 83.8 % (45-76); NEUTROPHIL COUNT 8.7 K/uL (1.8-6.4); NRBC (%) 0.4 /100 WBC (0-0); PLATELET COUNT 182 K/uL (156-360); RBC DIS.WIDTH-CV 19.4 % (11.8-14.6); RED BLOOD COUNT 3.26 M/uL (4.00-5.50); WHITE BLOOD COUNT 10.4 K/uL (4.1-10.2)
[2017-03-19 08:46] LABS: ALBUMIN 2.8 G/DL (3.2-4.8); ALKALINE PHOSPHATASE 177 IU/L (3-129); ALT (GPT) 3 IU/L (3-49); AST (GOT) 35 IU/L (2-34); CHLORIDE 92 MEQ/L (99-109); CREATININE 5.3 MG/DL (0.6-1.3); GFR ESTIMATE (CALCULATED) 11 mL/min/ (58.99-99999); GLUCOSE 131 mg/dL (70-99); POTASSIUM 4.4 MEQ/L (3.7-5.4); SODIUM 127 MEQ/L (136-147); TOTAL BILIRUBIN 0.6 MG/DL (0.0-1.0); TOTAL PROTEIN 7.1 G/DL (6.4-8.3); UREA NITROGEN (BUN) 46 mg/dL (9-23)
[2017-03-19 10:49] LABS: INTER. NORMALIZED RATIO 3.7
[2017-03-19 11:32] VITALS: BP 159/72
[2017-03-19 16:39] VITALS: BP 157/74
[2017-03-19 23:35] VITALS: BP 133/74
[2017-03-20 06:54] LABS: INTER. NORMALIZED RATIO 3.7
[2017-03-20 09:36] VITALS: BP 143/69
[2017-03-20 16:00] VITALS: BP 155/78
[2017-03-20 23:35] VITALS: BP 126/60
[2017-03-21 07:29] VITALS: BP 166/80
[2017-03-21 08:28] LABS: BASOPHIL (%) 0.3 % (0-1); EOSINOPHIL (%) 1.4 % (0-5); EOSINOPHIL COUNT 0.2 K/uL (0-0.3); HEMOGLOBIN 9.3 G/DL (12.5-16.6); IMMATURE GRANULOCYTE (%) 0.8 % (0.0-0.7); LYMPHOCYTE (%) 5.8 % (15-42); LYMPHOCYTE COUNT 0.6 K/uL (1.0-2.8); MCV 93.5 FL (86-99); MONOCYTE (%) 10.5 % (3-12); MONOCYTE COUNT 1.1 K/uL (0-0.8); NEUTROPHIL (%) 81.2 % (45-76); NEUTROPHIL COUNT 8.6 K/uL (1.8-6.4); NRBC (%) 0.2 /100 WBC (0-0); PLATELET COUNT 194 K/uL (156-360); RBC DIS.WIDTH-CV 19.8 % (11.8-14.6); RBC DIS.WIDTH-SD 65.1 % (39-53); RED BLOOD COUNT 3.21 M/uL (4.00-5.50); WHITE BLOOD COUNT 10.5 K/uL (4.1-10.2)
[2017-03-21 08:35] LABS: INTER. NORMALIZED RATIO 3.3
[2017-03-21 08:46] LABS: CHLORIDE 96 MEQ/L (99-109); CREATININE 5.3 MG/DL (0.6-1.3); GFR ESTIMATE (CALCULATED) 11 mL/min/ (58.99-99999); GLUCOSE 127 mg/dL (70-99); POTASSIUM 4.1 MEQ/L (3.7-5.4); SODIUM 132 MEQ/L (136-147); UREA NITROGEN (BUN) 47 mg/dL (9-23)
[2017-03-21 11:17] LABS: PHOSPHORUS 4.9 mg/dL (2.5-4.9)
[2017-03-21 12:16] VITALS: BP 150/69
[2017-03-21 16:40] VITALS: BP 130/69
[2017-03-21 23:33] VITALS: BP 160/72
[2017-03-22 00:28] VITALS: BP 139/65
[2017-03-22 02:07] LABS: C DIFF TOXIN NEGATIVE (NEGATIVE)
[2017-03-22 06:21] LABS: INTER. NORMALIZED RATIO 3.1
[2017-03-22 07:04] VITALS: BP 157/74
[2017-03-22 11:30] VITALS: BP 139/60
[2017-03-22] MEDS ORDERED: DIGOXIN125 MCG PO (12:39)
[2017-03-22] MEDS ORDERED: VENLAFAXINE HCL75 M3 PO (12:42)
[2017-03-22] MEDS ORDERED: FUROSEMIDE80 MG PO (12:43)
[2017-03-22] MEDS ORDERED: HYDROCODON-ACE1 EAC7 PO (12:45)
[2017-03-22 15:55] VITALS: BP 153/72
[2017-03-23 00:23] VITALS: BP 160/85
[2017-03-23 06:35] VITALS: BP 150/68
[2017-03-23 08:41] LABS: HEMATOCRIT 30.4 % (38.0-50.0); HEMOGLOBIN 9.5 G/DL (12.5-16.6); MCH 29.5 PG (29.0-34.0); MCHC 31.3 G/DL (30.0-36.0); MCV 94.4 FL (86-99); PLATELET COUNT 199 K/uL (156-360); RBC DIS.WIDTH-CV 19.9 % (11.8-14.6); RBC DIS.WIDTH-SD 67.9 % (39-53); RED BLOOD COUNT 3.22 M/uL (4.00-5.50); WHITE BLOOD COUNT 10.1 K/uL (4.1-10.2)
[2017-03-23 08:47] LABS: INTER. NORMALIZED RATIO 3.2
[2017-03-23 08:57] LABS: ALBUMIN 2.8 G/DL (3.2-4.8); CHLORIDE 94 MEQ/L (99-109); CREATININE 5.5 MG/DL (0.6-1.3); GFR ESTIMATE (CALCULATED) 11 mL/min/ (58.99-99999); GLUCOSE 122 mg/dL (70-99); PHOSPHORUS 5.1 mg/dL (2.5-4.9); POTASSIUM 3.7 MEQ/L (3.7-5.4); SODIUM 130 MEQ/L (136-147); UREA NITROGEN (BUN) 42 mg/dL (9-23)
[2017-03-23 12:18] VITALS: BP 151/69
[2017-03-23 14:55] VITALS: BP 139/62
== END 2017-03-23 16:23 | DRG 673 ==
LOC: EME 15:37 → 5EAST 19:45 → EDOF 19:45 → ENRESERV 19:53 → 5EAST 22:20
PROVIDERS: Emergency Medicine; Hospitalist; Internal Medicine; Internal Medicine Nephrology
PROC: 5A1D70Z Performance of Urinary Filtration, Intermittent, Less than 6 Hours Per Day (ICD-10-PCS; principal; 2017-03-12)
PROC: 02HV33Z Insertion of Infusion Device into Superior Vena Cava, Percutaneous Approach (ICD-10-PCS; principal; 2017-03-12)
PROC: 02HV33Z Insertion of Infusion Device into Superior Vena Cava, Percutaneous Approach (ICD-10-PCS; 2017-03-18)
PROC: 0JH63XZ Insertion of Tunneled Vascular Access Device into Chest Subcutaneous Tissue and Fascia, Percutaneous Approach (ICD-10-PCS; 2017-03-18)
DX: N17.0 Acute kidney failure with tubular necrosis (principal); I50.23 Acute on chronic systolic (congestive) heart failure; I13.0 Hypertensive heart and chronic kidney disease with heart failure and stage 1 through stage 4 chronic kidney disease, or unspecified chronic kidney disease; L03.116 Cellulitis of left lower limb; I42.9 Cardiomyopathy, unspecified; T81.89XA Other complications of procedures, not elsewhere classified, initial encounter; I48.91 Unspecified atrial fibrillation; E66.9 Obesity, unspecified; D68.32 Hemorrhagic disorder due to extrinsic circulating anticoagulants; T45.515A Adverse effect of anticoagulants, initial encounter; Z95.810 Presence of automatic (implantable) cardiac defibrillator; Z99.2 Dependence on renal dialysis; Z89.422 Acquired absence of other left toe(s); Z85.820 Personal history of malignant melanoma of skin; I27.20 Pulmonary hypertension, unspecified; L02.612 Cutaneous abscess of left foot; E87.6 Hypokalemia; E11.22 Type 2 diabetes mellitus with diabetic chronic kidney disease; E11.21 Type 2 diabetes mellitus with diabetic nephropathy; N18.4 Chronic kidney disease, stage 4 (severe); D63.1 Anemia in chronic kidney disease; N25.81 Secondary hyperparathyroidism of renal origin; E03.9 Hypothyroidism, unspecified; M86.172 Other acute osteomyelitis, left ankle and foot; E78.5 Hyperlipidemia, unspecified; E87.1 Hypo-osmolality and hyponatremia; F32.9 Major depressive disorder, single episode, unspecified; I25.10 Atherosclerotic heart disease of native coronary artery without angina pectoris; R04.0 Epistaxis; N40.0 Benign prostatic hyperplasia without lower urinary tract symptoms; Z87.891 Personal history of nicotine dependence; E55.9 Vitamin D deficiency, unspecified; Z79.01 Long term (current) use of anticoagulants; B95.61 Methicillin susceptible Staphylococcus aureus infection as the cause of diseases classified elsewhere; Z79.4 Long term (current) use of insulin; Z68.37 Body mass index [BMI] 37.0-37.9, adult
CPT/HCPCS: 71045; 76770; 80048; 80053; 80069; 80162; 81003; 82306; 82330; 82436; 82550 91; 82570; 82948; 83540; 83605; 83735; 83880; 83970; 84100; 84156; 84300; 84466; 84484; 84540; 84550; 85025; 85027; 85610; 85730; 86140; 86706; 87040; 87340; 87493; 93005; 93306; 94640; 99202; 99281; 99285; C1750; C1752; J0690; J0881; J1644; J1815; J2250; J3010; J7030; S0020

== ENCOUNTER 2017-04-19 15:31 | Emergency (ER) | payer OTHER ==
[~2017-04-19] VITALS: Ht 188 cm; Wt 130.9 kg
[~2017-04-19 15:31] MED LIST changes: +ALPHA LIPOIC A200 M1 PO; +APRESOLINE25 MG PO; +CEFAZOLIN SODIUM1 GM IV; +COLACE100 MG PO; +DEMADEX20 MG PO; +DIGOXIN125 MCG PO; +DULCOLAX10 MG PR; +DUONEB 2.5-0.5 M3 ML AEROSOL; +FLORASTOR250 MG PO; +HYDROCODON-ACE1 EAC7 PO; +LOTRIMIN AF90 GM TP; +MEPHYTON5 MG PO; +MIRALAX17 GM PO; -OXYBUTYNIN CHLO10 MG PO; +OXYBUTYNIN CHLOR5 MG PO; +PHILLIPS'400 MG/5 M PO; +VENLAFAXINE HCL75 M3 PO; -VITAMIN B-12250 MCG PO; +VITAMIN B-12500 MC3 PO; +WARFARIN SODIU2.5 MG PO
[2017-04-19 17:17] LABS: INTER. NORMALIZED RATIO 5.4
[2017-04-19 18:28] VITALS: BP 183/98
[2017-04-20] MEDS ORDERED: ADVAIR 500/501 DISK IH (00:38)
[2017-04-20] MEDS ORDERED: VITAMIN B-6100 MG PO ×2 (00:47→01:06)
[2017-04-20] MEDS ORDERED: COUMADIN1 MG PO (00:58)
[2017-04-20] MEDS ORDERED: HUMULIN N100 UNITS/ SC (01:00)
[2017-04-20] MEDS ORDERED: TRAZODONE HCL50 MG PO (01:02)
[2017-04-20] MEDS ORDERED: ALPHA LIPOIC A200 M1 PO (01:07)
== END 2017-04-19 18:29 | disposition home or self-care (01) ==
LOC: EME 15:31
PROVIDERS: Emergency Medicine
DX: S00.03XA Contusion of scalp, initial encounter (principal); R79.1 Abnormal coagulation profile; W18.30XA Fall on same level, unspecified, initial encounter; Z79.01 Long term (current) use of anticoagulants; E11.22 Type 2 diabetes mellitus with diabetic chronic kidney disease; I13.0 Hypertensive heart and chronic kidney disease with heart failure and stage 1 through stage 4 chronic kidney disease, or unspecified chronic kidney disease; I50.9 Heart failure, unspecified; N18.9 Chronic kidney disease, unspecified; Z79.4 Long term (current) use of insulin; I73.9 Peripheral vascular disease, unspecified; E78.5 Hyperlipidemia, unspecified; J44.9 Chronic obstructive pulmonary disease, unspecified; I48.91 Unspecified atrial fibrillation; I25.10 Atherosclerotic heart disease of native coronary artery without angina pectoris; Z95.5 Presence of coronary angioplasty implant and graft; Z95.0 Presence of cardiac pacemaker; Z85.820 Personal history of malignant melanoma of skin; Z88.8 Allergy status to other drugs, medicaments and biological substances; Z87.891 Personal history of nicotine dependence
CPT/HCPCS: 70450; 72125; 85610; 99281; 99285

== ENCOUNTER 2017-04-19 21:00 | Inpatient (IN) | payer OTHER ==
[~2017-04-19] VITALS: Ht 188 cm; Wt 168.0 kg
[~2017-04-19 21:00] MED LIST changes: +OXYBUTYNIN CHLO10 MG PO; -OXYBUTYNIN CHLOR5 MG PO
[2017-04-19 22:29] LABS: HEMATOCRIT 31.1 % (38.0-50.0); HEMOGLOBIN 10.2 G/DL (12.5-16.6); MCH 30.4 PG (29.0-34.0); MCHC 32.8 G/DL (30.0-36.0); NRBC (%) 0.2 /100 WBC (0-0); PLATELET COUNT 235 K/uL (156-360); RBC DIS.WIDTH-CV 21.1 % (11.8-14.6); RBC DIS.WIDTH-SD 69.3 % (39-53); RED BLOOD COUNT 3.36 M/uL (4.00-5.50); WHITE BLOOD COUNT 8.8 K/uL (4.1-10.2)
[2017-04-19 22:41] LABS: MCV 92.6 FL (86-99)
[2017-04-19 22:44] LABS: INTER. NORMALIZED RATIO 5.6
[2017-04-19 22:46] LABS: CHLORIDE 99 mEq/L (99-109); POTASSIUM 4.4 mEq/L (3.7-5.4); SODIUM 135 mEq/L (136-147)
[2017-04-19 22:47] LABS: GLUCOSE 142 mg/dL (70-99)
[2017-04-19 22:51] LABS: CREATININE 3.5 mg/dL (0.6-1.3); GFR ESTIMATE (CALCULATED) 18 mL/min/ (58.99-99999)
[2017-04-19 22:59] LABS: UREA NITROGEN (BUN) 48 mg/dL (9-23)
[2017-04-20] VITALS (7 sets, daily range): BP systolic 114–170; BP diastolic 58–80
[2017-04-20] MEDS ORDERED: ADVAIR 500/501 DISK IH (00:38)
[2017-04-20] MEDS ORDERED: VITAMIN B-6100 MG PO ×2 (00:47→01:06)
[2017-04-20] MEDS ORDERED: COUMADIN1 MG PO (00:58)
[2017-04-20] MEDS ORDERED: HUMULIN N100 UNITS/ SC (01:00)
[2017-04-20] MEDS ORDERED: TRAZODONE HCL50 MG PO (01:02)
[2017-04-20] MEDS ORDERED: ALPHA LIPOIC A600 MG PO (01:07)
[2017-04-20 04:37] LABS: BASOPHIL (%) 0.2 % (0-1); EOSINOPHIL (%) 0.1 % (0-5); IMMATURE GRANULOCYTE (%) 0.9 % (0.0-0.7); LYMPHOCYTE (%) 8.8 % (15-42); LYMPHOCYTE COUNT 0.8 K/uL (1.0-2.8); MONOCYTE (%) 8.4 % (3-12); MONOCYTE COUNT 0.7 K/uL (0-0.8); NEUTROPHIL (%) 81.6 % (45-76); NEUTROPHIL COUNT 7.2 K/uL (1.8-6.4)
[2017-04-20 07:38] LABS: HEMATOCRIT 30.1 % (38.0-50.0); HEMOGLOBIN 9.4 G/DL (12.5-16.6); MCHC 31.2 G/DL (30.0-36.0); MCV 96.2 FL (86-99); NRBC (%) 0.2 /100 WBC (0-0); PLATELET COUNT 210 K/uL (156-360); RBC DIS.WIDTH-CV 21.4 % (11.8-14.6); RBC DIS.WIDTH-SD 73.7 % (39-53); RED BLOOD COUNT 3.13 M/uL (4.00-5.50)
[2017-04-20 07:54] LABS: ALBUMIN 2.6 G/DL (3.2-4.8); CHLORIDE 98 MEQ/L (99-109); POTASSIUM 4.6 MEQ/L (3.7-5.4); SODIUM 134 MEQ/L (136-147); TOTAL BILIRUBIN 0.7 MG/DL (0.0-1.0)
[2017-04-20 07:59] LABS: ALKALINE PHOSPHATASE 120 IU/L (3-129); ALT (GPT) 21 IU/L (3-49); AST (GOT) 27 IU/L (2-34); CREATININE 3.5 MG/DL (0.6-1.3); GFR ESTIMATE (CALCULATED) 18 mL/min/ (58.99-99999); GLUCOSE 119 mg/dL (70-99); TOTAL PROTEIN 5.9 G/DL (6.4-8.3); UREA NITROGEN (BUN) 48 mg/dL (9-23)
[2017-04-20 08:03] LABS: INTER. NORMALIZED RATIO 4.7
[2017-04-20 15:55] LABS: INTER. NORMALIZED RATIO 3.8
[2017-04-21 00:19] VITALS: BP 123/60
[2017-04-21 04:38] VITALS: BP 123/59
[2017-04-21 05:05] LABS: HEMATOCRIT 27.3 % (38.0-50.0); HEMOGLOBIN 8.6 G/DL (12.5-16.6); MCH 29.8 PG (29.0-34.0); MCHC 31.5 G/DL (30.0-36.0); MCV 94.5 FL (86-99); NRBC (%) 0.6 /100 WBC (0-0); PLATELET COUNT 216 K/uL (156-360); RBC DIS.WIDTH-CV 21.1 % (11.8-14.6); RBC DIS.WIDTH-SD 70.4 % (39-53); RED BLOOD COUNT 2.89 M/uL (4.00-5.50); WHITE BLOOD COUNT 10.2 K/uL (4.1-10.2)
[2017-04-21 05:13] LABS: INTER. NORMALIZED RATIO 3.8
[2017-04-21 05:32] LABS: CHLORIDE 95 MEQ/L (99-109); CREATININE 3.7 MG/DL (0.6-1.3); GFR ESTIMATE (CALCULATED) 17 mL/min/ (58.99-99999); GLUCOSE 93 mg/dL (70-99); PHOSPHORUS 4.9 mg/dL (2.5-4.9); POTASSIUM 4.3 MEQ/L (3.7-5.4); SODIUM 132 MEQ/L (136-147); UREA NITROGEN (BUN) 55 mg/dL (9-23)
[2017-04-21 07:00] VITALS: BP 122/89
[2017-04-21 11:14] LABS: IRON 42 MCG/DL (35-150); TRANSFERRIN (TIBC) 143.5 mg/dL (215-380); TRANSFERRIN SATUR. 29 % (20-55)
[2017-04-21 11:51] VITALS: BP 122/59
[2017-04-21 16:19] VITALS: BP 143/65
[2017-04-21 20:17] VITALS: BP 111/89
[2017-04-22 00:23] VITALS: BP 129/60
[2017-04-22 04:57] LABS: HEMATOCRIT 27.1 % (38.0-50.0); HEMOGLOBIN 8.7 G/DL (12.5-16.6); MCHC 32.1 G/DL (30.0-36.0); MCV 93.4 FL (86-99); NRBC (%) 0.8 /100 WBC (0-0); PLATELET COUNT 218 K/uL (156-360); RBC DIS.WIDTH-CV 21.2 % (11.8-14.6); RBC DIS.WIDTH-SD 69.4 % (39-53); WHITE BLOOD COUNT 8.7 K/uL (4.1-10.2)
[2017-04-22 05:26] LABS: ALBUMIN 2.6 G/DL (3.2-4.8); CHLORIDE 94 MEQ/L (99-109); CREATININE 3.7 MG/DL (0.6-1.3); GFR ESTIMATE (CALCULATED) 17 mL/min/ (58.99-99999); GLUCOSE 95 mg/dL (70-99); PHOSPHORUS 4.9 mg/dL (2.5-4.9); POTASSIUM 4.1 MEQ/L (3.7-5.4); SODIUM 131 MEQ/L (136-147); UREA NITROGEN (BUN) 51 mg/dL (9-23)
[2017-04-22 07:31] VITALS: BP 126/63
[2017-04-22 10:27] VITALS: BP 133/65
[2017-04-22 10:30] LABS: INTER. NORMALIZED RATIO 3.2
[2017-04-22 15:59] VITALS: BP 143/78
[2017-04-23 00:45] VITALS: BP 134/63
[2017-04-23 05:15] VITALS: BP 137/67
[2017-04-23 06:21] LABS: HEMATOCRIT 27.8 % (38.0-50.0); MCHC 32.4 G/DL (30.0-36.0); MCV 92.7 FL (86-99); NRBC (%) 1.8 /100 WBC (0-0); PLATELET COUNT 241 K/uL (156-360); RBC DIS.WIDTH-CV 21.2 % (11.8-14.6); RBC DIS.WIDTH-SD 69.5 % (39-53); WHITE BLOOD COUNT 8.3 K/uL (4.1-10.2)
[2017-04-23 06:43] LABS: ALBUMIN 2.7 G/DL (3.2-4.8); CHLORIDE 93 MEQ/L (99-109); CREATININE 3.9 MG/DL (0.6-1.3); GFR ESTIMATE (CALCULATED) 16 mL/min/ (58.99-99999); GLUCOSE 124 mg/dL (70-99); PHOSPHORUS 5.4 mg/dL (2.5-4.9); POTASSIUM 4.6 MEQ/L (3.7-5.4); SODIUM 127 MEQ/L (136-147); UREA NITROGEN (BUN) 60 mg/dL (9-23)
[2017-04-23 08:19] VITALS: BP 127/67
[2017-04-23 15:31] VITALS: BP 123/80
[2017-04-23 19:36] VITALS: BP 162/79
[2017-04-23 23:33] VITALS: BP 155/82
[2017-04-24 06:09] LABS: HEMATOCRIT 28.9 % (38.0-50.0); HEMOGLOBIN 9.4 G/DL (12.5-16.6); MCV 93.2 FL (86-99)
[2017-04-24 06:33] LABS: CHLORIDE 95 MEQ/L (99-109); CREATININE 3.7 MG/DL (0.6-1.3); GFR ESTIMATE (CALCULATED) 17 mL/min/ (58.99-99999); GLUCOSE 108 mg/dL (70-99); POTASSIUM 4.4 MEQ/L (3.7-5.4); SODIUM 132 MEQ/L (136-147); UREA NITROGEN (BUN) 62 mg/dL (9-23)
[2017-04-24 08:17] VITALS: BP 145/74
[2017-04-24 16:05] VITALS: BP 153/79
[2017-04-24 23:08] VITALS: BP 143/78
[2017-04-25 07:42] VITALS: BP 132/88
[2017-04-25 09:26] LABS: BASOPHIL (%) 0.4 % (0-1); EOSINOPHIL (%) 1.6 % (0-5); EOSINOPHIL COUNT 0.2 K/uL (0-0.3); HEMATOCRIT 28.9 % (38.0-50.0); HEMOGLOBIN 9.4 G/DL (12.5-16.6); IMMATURE GRANULOCYTE (%) 0.7 % (0.0-0.7); LYMPHOCYTE (%) 8.4 % (15-42); LYMPHOCYTE COUNT 0.8 K/uL (1.0-2.8); MCH 30.4 PG (29.0-34.0); MCHC 32.5 G/DL (30.0-36.0); MCV 93.5 FL (86-99); MONOCYTE (%) 12.6 % (3-12); MONOCYTE COUNT 1.2 K/uL (0-0.8); NEUTROPHIL (%) 76.3 % (45-76); NEUTROPHIL COUNT 7.1 K/uL (1.8-6.4); NRBC (%) 2.3 /100 WBC (0-0); PLATELET COUNT 222 K/uL (156-360); RBC DIS.WIDTH-SD 71.5 % (39-53); RED BLOOD COUNT 3.09 M/uL (4.00-5.50); WHITE BLOOD COUNT 9.4 K/uL (4.1-10.2)
[2017-04-25 09:42] LABS: INTER. NORMALIZED RATIO 2.1
[2017-04-25 09:52] LABS: ALBUMIN 2.6 G/DL (3.2-4.8); CHLORIDE 94 MEQ/L (99-109); CREATININE 3.6 MG/DL (0.6-1.3); GFR ESTIMATE (CALCULATED) 18 mL/min/ (58.99-99999); GLUCOSE 127 mg/dL (70-99); PHOSPHORUS 5.3 mg/dL (2.5-4.9); POTASSIUM 4.3 MEQ/L (3.7-5.4); SODIUM 131 MEQ/L (136-147); UREA NITROGEN (BUN) 65 mg/dL (9-23)
[2017-04-25 16:22] VITALS: BP 135/78
[2017-04-26 00:24] VITALS: BP 135/66
[2017-04-26 08:16] LABS: ALBUMIN 2.8 G/DL (3.2-4.8); CHLORIDE 93 MEQ/L (99-109); CREATININE 3.8 MG/DL (0.6-1.3); GFR ESTIMATE (CALCULATED) 17 mL/min/ (58.99-99999); GLUCOSE 118 mg/dL (70-99); PHOSPHORUS 5.5 mg/dL (2.5-4.9); POTASSIUM 4.5 MEQ/L (3.7-5.4); SODIUM 129 MEQ/L (136-147); UREA NITROGEN (BUN) 70 mg/dL (9-23)
[2017-04-26 08:21] LABS: INTACT PARATHYROID HORMONE 180 pg/mL (10-69)
[2017-04-26 08:24] VITALS: BP 137/84
[2017-04-26 08:42] LABS: FOLIC ACID (FOLATE) 8.6 NG/ML (5.0-22.0)
[2017-04-27 00:25] VITALS: BP 150/96
[2017-04-27 04:11] VITALS: BP 105/64
[2017-04-27 07:56] LABS: BASOPHIL (%) 0.3 % (0-1); EOSINOPHIL (%) 1.3 % (0-5); EOSINOPHIL COUNT 0.1 K/uL (0-0.3); HEMATOCRIT 29.7 % (38.0-50.0); HEMOGLOBIN 9.7 G/DL (12.5-16.6); IMMATURE GRANULOCYTE (%) 0.7 % (0.0-0.7); LYMPHOCYTE (%) 8.3 % (15-42); LYMPHOCYTE COUNT 0.9 K/uL (1.0-2.8); MCH 30.1 PG (29.0-34.0); MCHC 32.7 G/DL (30.0-36.0); MCV 92.2 FL (86-99); MONOCYTE (%) 10.2 % (3-12); NEUTROPHIL (%) 79.2 % (45-76); NEUTROPHIL COUNT 8.1 K/uL (1.8-6.4); NRBC (%) 1.8 /100 WBC (0-0); PLATELET COUNT 207 K/uL (156-360); RBC DIS.WIDTH-CV 22.4 % (11.8-14.6); RED BLOOD COUNT 3.22 M/uL (4.00-5.50); WHITE BLOOD COUNT 10.2 K/uL (4.1-10.2)
[2017-04-27 08:22] LABS: ALBUMIN 2.5 G/DL (3.2-4.8); CHLORIDE 92 MEQ/L (99-109); CREATININE 3.8 MG/DL (0.6-1.3); GFR ESTIMATE (CALCULATED) 17 mL/min/ (58.99-99999); GLUCOSE 123 mg/dL (70-99); PHOSPHORUS 5.5 mg/dL (2.5-4.9); POTASSIUM 4.4 MEQ/L (3.7-5.4); SODIUM 128 MEQ/L (136-147); UREA NITROGEN (BUN) 73 mg/dL (9-23); URIC ACID 6.2 mg/dL (3.1-9.2)
[2017-04-27 16:00] VITALS: BP 129/73
[2017-04-27 23:55] VITALS: BP 137/69
[2017-04-28 05:58] LABS: ALBUMIN 2.5 G/DL (3.2-4.8); CHLORIDE 90 MEQ/L (99-109); CREATININE 3.7 MG/DL (0.6-1.3); GFR ESTIMATE (CALCULATED) 17 mL/min/ (58.99-99999); GLUCOSE 120 mg/dL (70-99); PHOSPHORUS 5.2 mg/dL (2.5-4.9); SODIUM 128 MEQ/L (136-147); UREA NITROGEN (BUN) 75 mg/dL (9-23); URIC ACID 6.3 mg/dL (3.1-9.2)
[2017-04-28 08:30] VITALS: BP 115/57
[2017-04-28 11:57] LABS: BASOPHIL (%) 0.3 % (0-1); EOSINOPHIL (%) 1.9 % (0-5); EOSINOPHIL COUNT 0.2 K/uL (0-0.3); HEMATOCRIT 28.5 % (38.0-50.0); HEMOGLOBIN 9.4 G/DL (12.5-16.6); IMMATURE GRANULOCYTE (%) 0.6 % (0.0-0.7); LYMPHOCYTE (%) 3.8 % (15-42); LYMPHOCYTE COUNT 0.4 K/uL (1.0-2.8); MCH 30.5 PG (29.0-34.0); MCV 92.5 FL (86-99); MONOCYTE (%) 8.3 % (3-12); MONOCYTE COUNT 0.9 K/uL (0-0.8); NEUTROPHIL (%) 85.1 % (45-76); NEUTROPHIL COUNT 8.9 K/uL (1.8-6.4); NRBC (%) 1.1 /100 WBC (0-0); PLATELET COUNT 216 K/uL (156-360); RBC DIS.WIDTH-CV 22.5 % (11.8-14.6); RBC DIS.WIDTH-SD 74.2 % (39-53); RED BLOOD COUNT 3.08 M/uL (4.00-5.50); WHITE BLOOD COUNT 10.4 K/uL (4.1-10.2)
[2017-04-28 15:40] VITALS: BP 118/67
[2017-04-28 23:40] VITALS: BP 137/58
[2017-04-29 06:23] LABS: BASOPHIL (%) 0.2 % (0-1); EOSINOPHIL (%) 1.6 % (0-5); EOSINOPHIL COUNT 0.2 K/uL (0-0.3); HEMATOCRIT 27.5 % (38.0-50.0); HEMOGLOBIN 8.9 G/DL (12.5-16.6); IMMATURE GRANULOCYTE (%) 0.5 % (0.0-0.7); LYMPHOCYTE (%) 5.4 % (15-42); LYMPHOCYTE COUNT 0.6 K/uL (1.0-2.8); MCH 30.1 PG (29.0-34.0); MCHC 32.4 G/DL (30.0-36.0); MCV 92.9 FL (86-99); MONOCYTE (%) 9.2 % (3-12); NEUTROPHIL (%) 83.1 % (45-76); NEUTROPHIL COUNT 8.9 K/uL (1.8-6.4); NRBC (%) 0.8 /100 WBC (0-0); PLATELET COUNT 185 K/uL (156-360); RBC DIS.WIDTH-CV 22.5 % (11.8-14.6); RBC DIS.WIDTH-SD 73.4 % (39-53); RED BLOOD COUNT 2.96 M/uL (4.00-5.50); WHITE BLOOD COUNT 10.7 K/uL (4.1-10.2)
[2017-04-29 07:32] LABS: CHLORIDE 88 MEQ/L (99-109); CREATININE 3.9 MG/DL (0.6-1.3); GFR ESTIMATE (CALCULATED) 16 mL/min/ (58.99-99999); GLUCOSE 94 mg/dL (70-99); SODIUM 128 MEQ/L (136-147); UREA NITROGEN (BUN) 75 mg/dL (9-23)
[2017-04-29 08:22] VITALS: BP 116/58
[2017-04-29 10:44] VITALS: BP 122/62
[2017-04-29 16:32] VITALS: BP 122/65
[2017-04-30 00:20] VITALS: BP 121/65
[2017-04-30 07:20] LABS: BASOPHIL (%) 0.4 % (0-1); EOSINOPHIL (%) 1.4 % (0-5); EOSINOPHIL COUNT 0.2 K/uL (0-0.3); HEMATOCRIT 28.6 % (38.0-50.0); HEMOGLOBIN 9.2 G/DL (12.5-16.6); IMMATURE GRANULOCYTE (%) 0.6 % (0.0-0.7); LYMPHOCYTE (%) 5.5 % (15-42); LYMPHOCYTE COUNT 0.6 K/uL (1.0-2.8); MCH 29.9 PG (29.0-34.0); MCHC 32.2 G/DL (30.0-36.0); MCV 92.9 FL (86-99); MONOCYTE (%) 9.6 % (3-12); NEUTROPHIL (%) 82.5 % (45-76); NEUTROPHIL COUNT 8.8 K/uL (1.8-6.4); NRBC (%) 0.9 /100 WBC (0-0); PLATELET COUNT 186 K/uL (156-360); RBC DIS.WIDTH-CV 22.5 % (11.8-14.6); RED BLOOD COUNT 3.08 M/uL (4.00-5.50); WHITE BLOOD COUNT 10.6 K/uL (4.1-10.2)
[2017-04-30 07:51] LABS: ALBUMIN 2.5 G/DL (3.2-4.8); CHLORIDE 88 MEQ/L (99-109); CREATININE 4.2 MG/DL (0.6-1.3); GFR ESTIMATE (CALCULATED) 15 mL/min/ (58.99-99999); GLUCOSE 98 mg/dL (70-99); PHOSPHORUS 5.7 mg/dL (2.5-4.9); POTASSIUM 3.6 MEQ/L (3.7-5.4); SODIUM 130 MEQ/L (136-147); UREA NITROGEN (BUN) 77 mg/dL (9-23)
[2017-04-30 08:24] VITALS: BP 126/65
[2017-04-30 14:59] VITALS: BP 122/68
[2017-04-30 23:48] VITALS: BP 124/58
[2017-05-01 06:10] LABS: BASOPHIL (%) 0.4 % (0-1); EOSINOPHIL (%) 0.9 % (0-5); EOSINOPHIL COUNT 0.1 K/uL (0-0.3); HEMATOCRIT 28.6 % (38.0-50.0); HEMOGLOBIN 9.3 G/DL (12.5-16.6); IMMATURE GRANULOCYTE (%) 0.7 % (0.0-0.7); LYMPHOCYTE (%) 7.3 % (15-42); LYMPHOCYTE COUNT 0.6 K/uL (1.0-2.8); MCH 30.2 PG (29.0-34.0); MCHC 32.5 G/DL (30.0-36.0); MCV 92.9 FL (86-99); MONOCYTE (%) 10.2 % (3-12); MONOCYTE COUNT 0.9 K/uL (0-0.8); NEUTROPHIL (%) 80.5 % (45-76); NEUTROPHIL COUNT 6.8 K/uL (1.8-6.4); NRBC (%) 1.1 /100 WBC (0-0); PLATELET COUNT 166 K/uL (156-360); RBC DIS.WIDTH-CV 22.7 % (11.8-14.6); RBC DIS.WIDTH-SD 75.5 % (39-53); RED BLOOD COUNT 3.08 M/uL (4.00-5.50); WHITE BLOOD COUNT 8.5 K/uL (4.1-10.2)
[2017-05-01 06:29] LABS: INTER. NORMALIZED RATIO 1.7
[2017-05-01 06:40] LABS: CHLORIDE 93 MEQ/L (99-109); CREATININE 3.5 MG/DL (0.6-1.3); GFR ESTIMATE (CALCULATED) 18 mL/min/ (58.99-99999); GLUCOSE 124 mg/dL (70-99); POTASSIUM 3.7 MEQ/L (3.7-5.4); SODIUM 132 MEQ/L (136-147); UREA NITROGEN (BUN) 58 mg/dL (9-23)
[2017-05-01 07:12] LABS: ALBUMIN 2.5 G/DL (3.2-4.8)
[2017-05-01 08:03] VITALS: BP 139/60
[2017-05-01 11:48] LABS: HEPATITIS B SURFACE ANTIBODY Nonreactive; HEPATITIS B SURFACE ANTIGEN Nonreactive
[2017-05-01 16:20] VITALS: BP 124/74
[2017-05-02] VITALS: BP 121/78
[2017-05-02 06:21] LABS: ALBUMIN 2.6 G/DL (3.2-4.8); CHLORIDE 93 MEQ/L (99-109); CREATININE 3.5 MG/DL (0.6-1.3); GFR ESTIMATE (CALCULATED) 18 mL/min/ (58.99-99999); GLUCOSE 131 mg/dL (70-99); PHOSPHORUS 5.1 mg/dL (2.5-4.9); POTASSIUM 3.7 MEQ/L (3.7-5.4); SODIUM 130 MEQ/L (136-147); UREA NITROGEN (BUN) 62 mg/dL (9-23)
[2017-05-02 08:12] VITALS: BP 131/69
[2017-05-02 09:49] LABS: VANCOMYCIN, TROUGH 21.1 MCG/ML (10-20)
[2017-05-02 12:58] LABS: HEMATOCRIT 28.7 % (38.0-50.0); HEMOGLOBIN 9.4 G/DL (12.5-16.6); MCH 30.7 PG (29.0-34.0); MCHC 32.8 G/DL (30.0-36.0); MCV 93.8 FL (86-99); NRBC (%) 0.4 /100 WBC (0-0); PLATELET COUNT 183 K/uL (156-360); RBC DIS.WIDTH-CV 22.8 % (11.8-14.6); RBC DIS.WIDTH-SD 76.5 % (39-53); RED BLOOD COUNT 3.06 M/uL (4.00-5.50); WHITE BLOOD COUNT 9.2 K/uL (4.1-10.2)
[2017-05-02 17:00] VITALS: BP 164/80
[2017-05-02 19:55] VITALS: BP 112/56
[2017-05-02 23:47] VITALS: BP 127/60
[2017-05-03 05:33] LABS: APPEARANCE CLEAR ((CLEAR)); BILIRUBIN NEGATIVE; BLOOD LARGE; COLOR YELLOW ((YELLOW)); GLUCOSE (STRIP) NEGATIVE; KETONES NEGATIVE; LEUKOCYTES NEGATIVE; NITRITE NEGATIVE; PROTEIN (STRIP) 30; SPECIFIC GRAVITY 1.009 (1.000-1.030); UROBILINOGEN 0.2 MG/DL (0.2-1.0)
[2017-05-03 05:42] LABS: BACTERIA RARE /HPF; EPITHELIAL CELLS RARE /HPF; HYALINE CASTS 0-5 /LPF; MUCUS TRACE /LPF; RED BLOOD CELLS 30-40 /HPF (0-5); WHITE BLOOD CELLS 0-5 /HPF (0-5)
[2017-05-03 08:00] VITALS: BP 135/77
[2017-05-03] MEDS ORDERED: ARANESP60 MCG/0.3 SC (11:26)
[2017-05-03] MEDS ORDERED: BISAC-EVAC10 MG PR (11:28)
[2017-05-03] MEDS ORDERED: METOLAZONE5 MG PO (11:28)
[2017-05-03] MEDS ORDERED: POLYETHYLENE GL17 GM PO (11:28)
[2017-05-03] MEDS ORDERED: SSD25GM TP (11:29)
[2017-05-03] MEDS ORDERED: NEOSPORIN ANT70.8 GM TP (11:29)
[2017-05-03] MEDS ORDERED: DOXYCYCLINE HY100 M3 PO (11:30)
[2017-05-03 12:09] VITALS: BP 152/78
== END 2017-05-03 15:58 | DRG 604 ==
LOC: EME 21:00 → 3EAST 04-20 00:57 → EDOF 04-20 00:57 → ENRESERV 04-20 01:02 → 3EAST 04-20 02:10
PROVIDERS: Emergency Medicine; Hospitalist; Internal Medicine; Internal Medicine Nephrology; Physician Assistant; Student in an Organized Health Care Education/Training Program
DX: S80.12XA Contusion of left lower leg, initial encounter (principal); R79.1 Abnormal coagulation profile; T45.515A Adverse effect of anticoagulants, initial encounter; E11.22 Type 2 diabetes mellitus with diabetic chronic kidney disease; I13.2 Hypertensive heart and chronic kidney disease with heart failure and with stage 5 chronic kidney disease, or end stage renal disease; N18.6 End stage renal disease; I50.9 Heart failure, unspecified; E11.21 Type 2 diabetes mellitus with diabetic nephropathy; E11.51 Type 2 diabetes mellitus with diabetic peripheral angiopathy without gangrene; E11.42 Type 2 diabetes mellitus with diabetic polyneuropathy; E87.1 Hypo-osmolality and hyponatremia; N17.9 Acute kidney failure, unspecified; N25.81 Secondary hyperparathyroidism of renal origin; D63.1 Anemia in chronic kidney disease; I42.9 Cardiomyopathy, unspecified; I48.2 Chronic atrial fibrillation; I27.20 Pulmonary hypertension, unspecified; I07.1 Rheumatic tricuspid insufficiency; D62 Acute posthemorrhagic anemia; I25.10 Atherosclerotic heart disease of native coronary artery without angina pectoris; E83.39 Other disorders of phosphorus metabolism; B37.0 Candidal stomatitis; L03.116 Cellulitis of left lower limb; B95.62 Methicillin resistant Staphylococcus aureus infection as the cause of diseases classified elsewhere; E78.5 Hyperlipidemia, unspecified; M10.9 Gout, unspecified; W07.XXXA Fall from chair, initial encounter; Y92.531 Health care provider office as the place of occurrence of the external cause; T81.89XD Other complications of procedures, not elsewhere classified, subsequent encounter; Y84.8 Other medical procedures as the cause of abnormal reaction of the patient, or of later complication, without mention of misadventure at the time of the procedure; E66.01 Morbid (severe) obesity due to excess calories; Z68.42 Body mass index [BMI] 45.0-49.9, adult; Z79.01 Long term (current) use of anticoagulants; Z79.4 Long term (current) use of insulin; Z85.820 Personal history of malignant melanoma of skin; Z87.442 Personal history of urinary calculi; Z89.422 Acquired absence of other left toe(s); Z95.5 Presence of coronary angioplasty implant and graft; Z95.810 Presence of automatic (implantable) cardiac defibrillator; Z99.2 Dependence on renal dialysis; Z91.81 History of falling
CPT/HCPCS: 71045; 73590; 73700; 80048; 80048 91; 80053; 80069; 80162; 80202; 81003; 82746; 82948; 83540; 83970; 84100; 84466; 84550; 85014; 85018; 85025; 85027; 85610; 86706; 87070; 87075; 87077; 87086; 87147; 87186; 87205; 87340; 93926; 93971; 94640; 94640 76; 94760; 94799; 97530 GO; 97530 GP; 99202; 99212; 99281; 99285; J0881; J1644; J1815; J1940; J2543; J3010; J3370; J3430; J7050

== ENCOUNTER 2017-05-04 22:32 | Inpatient (IN) | payer OTHER ==
[~2017-05-04] VITALS: Ht 188 cm; Wt 133.0 kg
[~2017-05-04 22:32] MED LIST changes: +ADVAIR 500/501 DISK IH; +ALPHA LIPOIC A600 MG PO; +ARANESP60 MCG/0.3 SC; +BISAC-EVAC10 MG PR; +COUMADIN1 MG PO; +DOXYCYCLINE HY100 M3 PO; +HUMULIN N100 UNITS/ SC; +METOLAZONE5 MG PO; +NEOSPORIN ANT70.8 GM TP; +POLYETHYLENE GL17 GM PO; +SSD25GM TP; +TRAZODONE HCL50 MG PO
[2017-05-04 23:33] LABS: BASOPHIL (%) 0.2 % (0-1); EOSINOPHIL (%) 0 % (0-5); HEMATOCRIT 34.7 % (38.0-50.0); HEMOGLOBIN 11.1 G/DL (12.5-16.6); IMMATURE GRANULOCYTE (%) 0.8 % (0.0-0.7); LYMPHOCYTE (%) 1.4 % (15-42); LYMPHOCYTE COUNT 0.3 K/uL (1.0-2.8); MCH 30.5 PG (29.0-34.0); MCV 95.3 FL (86-99); MONOCYTE (%) 5.8 % (3-12); MONOCYTE COUNT 1.1 K/uL (0-0.8); NEUTROPHIL (%) 91.8 % (45-76); NEUTROPHIL COUNT 16.6 K/uL (1.8-6.4); NRBC (%) 1.4 /100 WBC (0-0); RBC DIS.WIDTH-SD 79.2 % (39-53); RED BLOOD COUNT 3.64 M/uL (4.00-5.50); WHITE BLOOD COUNT 18.1 K/uL (4.1-10.2)
[2017-05-04 23:39] LABS: INTER. NORMALIZED RATIO 2.2
[2017-05-04 23:41] LABS: PTT 30.3 SEC (25-37)
[2017-05-04 23:45] LABS: CHLORIDE 97 mEq/L (99-109); SODIUM 135 mEq/L (136-147)
[2017-05-04 23:47] LABS: GLUCOSE 123 mg/dL (70-99)
[2017-05-04 23:52] LABS: PLATELET COUNT 299 K/uL (156-360)
[2017-05-04 23:56] LABS: CREATININE 2.7 mg/dL (0.6-1.3); GFR ESTIMATE (CALCULATED) 25 mL/min/ (58.99-99999); POTASSIUM 4.9 mEq/L (3.7-5.4); UREA NITROGEN (BUN) 30 mg/dL (9-23)
[2017-05-04 23:57] LABS: TROP-I INTERPRETATION NEGATIVE
[2017-05-05 02:14] LABS: APPEARANCE CLOUDY ((CLEAR)); BILIRUBIN NEGATIVE; BLOOD LARGE; COLOR AMBER ((YELLOW)); GLUCOSE (STRIP) 50; KETONES NEGATIVE; LEUKOCYTES NEGATIVE; NITRITE NEGATIVE; PROTEIN (STRIP) 100; SPECIFIC GRAVITY 1.013 (1.000-1.030); UROBILINOGEN 0.2 MG/DL (0.2-1.0)
[2017-05-05 02:16] LABS: BACTERIA 1+ /HPF; EPITHELIAL CELLS RARE /HPF; HYALINE CASTS 0-5 /LPF; MUCUS TRACE /LPF; RED BLOOD CELLS 20-30 /HPF (0-5); UCUL ADDED? YES
[2017-05-05 06:42] VITALS: BP 146/76
[2017-05-05 08:20] VITALS: BP 143/83
[2017-05-05 08:51] LABS: TROP-I INTERPRETATION NEGATIVE; TROPONIN-I 0.14 ng/mL (0.0-0.30)
[2017-05-05 11:43] VITALS: BP 130/82
[2017-05-05] MEDS ORDERED: ARANESP60 MCG/0.3 SC (13:32)
[2017-05-05] MEDS ORDERED: DIGOXIN125 MCG PO (13:39)
[2017-05-05] MEDS ORDERED: HUMULIN N100 UNITS/ SC (13:43)
[2017-05-05] MEDS ORDERED: WARFARIN SODIUM1 MG PO (13:44)
[2017-05-05 15:49] VITALS: BP 130/59
[2017-05-05 16:22] LABS: TROP-I INTERPRETATION NEGATIVE; TROPONIN-I 0.19 ng/mL (0.0-0.30)
[2017-05-05 20:20] VITALS: BP 155/71
[2017-05-06 00:40] VITALS: BP 134/72
[2017-05-06 04:19] VITALS: BP 150/70
[2017-05-06 05:50] LABS: PLATELET COUNT 298 K/uL (156-360)
[2017-05-06 06:12] LABS: ALBUMIN 2.3 G/DL (3.2-4.8); ALKALINE PHOSPHATASE 135 IU/L (3-129); ALT (GPT) 433 IU/L (3-49); AST (GOT) 764 IU/L (2-34); CHLORIDE 95 MEQ/L (99-109); GLUCOSE 127 mg/dL (70-99); PHOSPHORUS 5.5 mg/dL (2.5-4.9); POTASSIUM 4.7 MEQ/L (3.7-5.4); SODIUM 134 MEQ/L (136-147); TOTAL BILIRUBIN 1.3 MG/DL (0.0-1.0); TOTAL PROTEIN 5.5 G/DL (6.4-8.3)
[2017-05-06 06:15] LABS: CREATININE 3.6 MG/DL (0.6-1.3); GFR ESTIMATE (CALCULATED) 18 mL/min/ (58.99-99999); UREA NITROGEN (BUN) 47 mg/dL (9-23)
[2017-05-06 06:17] LABS: HEMATOCRIT 33.2 % (38.0-50.0); HEMOGLOBIN 10.5 G/DL (12.5-16.6); MCHC 31.6 G/DL (30.0-36.0); MCV 94.9 FL (86-99); NRBC (%) 0.7 /100 WBC (0-0); RBC DIS.WIDTH-CV 23.1 % (11.8-14.6); RBC DIS.WIDTH-SD 77.3 % (39-53)
[2017-05-06 07:13] LABS: WHITE BLOOD COUNT 30.1 K/uL (4.1-10.2)
[2017-05-06 12:06] VITALS: BP 136/66
[2017-05-06 15:42] VITALS: BP 144/71
[2017-05-06 20:44] VITALS: BP 134/58
[2017-05-07 00:07] VITALS: BP 132/61
[2017-05-07 04:55] VITALS: BP 123/57
[2017-05-07 06:31] LABS: HEMATOCRIT 30.7 % (38.0-50.0); HEMOGLOBIN 9.6 G/DL (12.5-16.6); MCH 29.6 PG (29.0-34.0); MCHC 31.3 G/DL (30.0-36.0); MCV 94.8 FL (86-99); NRBC (%) 1.2 /100 WBC (0-0); PLATELET COUNT 263 K/uL (156-360); RBC DIS.WIDTH-CV 22.8 % (11.8-14.6); RBC DIS.WIDTH-SD 76.9 % (39-53); RED BLOOD COUNT 3.24 M/uL (4.00-5.50); WHITE BLOOD COUNT 23.6 K/uL (4.1-10.2)
[2017-05-07 06:37] LABS: INTER. NORMALIZED RATIO 1.8
[2017-05-07 07:40] LABS: DIGOXIN 1.6 ng/mL (0.8-2.0)
[2017-05-07 07:49] LABS: ALBUMIN 2.2 G/DL (3.2-4.8); ALKALINE PHOSPHATASE 137 IU/L (3-129); ALT (GPT) 292 IU/L (3-49); CHLORIDE 97 MEQ/L (99-109); CREATININE 3.1 MG/DL (0.6-1.3); GFR ESTIMATE (CALCULATED) 21 mL/min/ (58.99-99999); GLUCOSE 100 mg/dL (70-99); SODIUM 134 MEQ/L (136-147); TOTAL BILIRUBIN 1.1 MG/DL (0.0-1.0); TOTAL PROTEIN 5.4 G/DL (6.4-8.3); UREA NITROGEN (BUN) 44 mg/dL (9-23)
[2017-05-07 07:50] LABS: AST (GOT) 392 IU/L (2-34); POTASSIUM 3.7 MEQ/L (3.7-5.4)
[2017-05-07 08:01] LABS: BASOPHIL (%) 0.1 % (0-1); EOSINOPHIL (%) 0.6 % (0-5); EOSINOPHIL COUNT 0.2 K/uL (0-0.3); HEMATOCRIT 31.4 % (38.0-50.0); IMMATURE GRANULOCYTE (%) 0.6 % (0.0-0.7); LYMPHOCYTE (%) 3.2 % (15-42); LYMPHOCYTE COUNT 0.8 K/uL (1.0-2.8); MCH 30.3 PG (29.0-34.0); MCHC 31.8 G/DL (30.0-36.0); MCV 95.2 FL (86-99); MONOCYTE (%) 3.8 % (3-12); MONOCYTE COUNT 0.9 K/uL (0-0.8); NEUTROPHIL (%) 91.7 % (45-76); NEUTROPHIL COUNT 21.2 K/uL (1.8-6.4); NRBC (%) 1.2 /100 WBC (0-0); PLATELET COUNT 276 K/uL (156-360); RBC DIS.WIDTH-CV 22.9 % (11.8-14.6); RBC DIS.WIDTH-SD 78.1 % (39-53); WHITE BLOOD COUNT 23.1 K/uL (4.1-10.2)
[2017-05-07 08:27] LABS: ALBUMIN 2.2 G/DL (3.2-4.8); CHLORIDE 96 MEQ/L (99-109); CREATININE 3.2 MG/DL (0.6-1.3); GFR ESTIMATE (CALCULATED) 21 mL/min/ (58.99-99999); GLUCOSE 111 mg/dL (70-99); PHOSPHORUS 3.6 mg/dL (2.5-4.9); POTASSIUM 3.7 MEQ/L (3.7-5.4); SODIUM 132 MEQ/L (136-147); UREA NITROGEN (BUN) 42 mg/dL (9-23)
[2017-05-07 11:23] VITALS: BP 129/61
[2017-05-07 15:47] VITALS: BP 120/60
[2017-05-07 20:05] VITALS: BP 113/56
[2017-05-07 23:34] VITALS: BP 118/51
[2017-05-08 03:53] VITALS: BP 129/53
[2017-05-08 05:34] LABS: HEMATOCRIT 31.5 % (38.0-50.0); HEMOGLOBIN 10.1 G/DL (12.5-16.6); MCH 30.1 PG (29.0-34.0); MCHC 32.1 G/DL (30.0-36.0); NRBC (%) 1.7 /100 WBC (0-0); PLATELET COUNT 252 K/uL (156-360); RBC DIS.WIDTH-SD 75.9 % (39-53); RED BLOOD COUNT 3.35 M/uL (4.00-5.50); WHITE BLOOD COUNT 14.3 K/uL (4.1-10.2)
[2017-05-08 06:09] LABS: ALBUMIN 2.4 G/DL (3.2-4.8); ALKALINE PHOSPHATASE 128 IU/L (3-129); ALT (GPT) 248 IU/L (3-49); AST (GOT) 274 IU/L (2-34); CHLORIDE 97 MEQ/L (99-109); CREATININE 3.6 MG/DL (0.6-1.3); GFR ESTIMATE (CALCULATED) 18 mL/min/ (58.99-99999); GLUCOSE 108 mg/dL (70-99); POTASSIUM 3.7 MEQ/L (3.7-5.4); SODIUM 130 MEQ/L (136-147); TOTAL BILIRUBIN 1.1 MG/DL (0.0-1.0); TOTAL PROTEIN 5.8 G/DL (6.4-8.3); UREA NITROGEN (BUN) 52 mg/dL (9-23)
[2017-05-08 09:33] VITALS: BP 129/66
[2017-05-08 12:25] VITALS: BP 126/70
[2017-05-08 16:34] VITALS: BP 133/51
[2017-05-08 19:12] VITALS: BP 130/68
[2017-05-08 23:08] VITALS: BP 130/69
[2017-05-09 03:10] VITALS: BP 119/67
[2017-05-09 07:29] VITALS: BP 107/66
[2017-05-09 07:38] LABS: ALBUMIN 2.5 G/DL (3.2-4.8); ALKALINE PHOSPHATASE 128 IU/L (3-129); ALT (GPT) 196 IU/L (3-49); AST (GOT) 175 IU/L (2-34); CHLORIDE 96 MEQ/L (99-109); CREATININE 4.1 MG/DL (0.6-1.3); GFR ESTIMATE (CALCULATED) 15 mL/min/ (58.99-99999); GLUCOSE 119 mg/dL (70-99); POTASSIUM 4.2 MEQ/L (3.7-5.4); SODIUM 133 MEQ/L (136-147); TOTAL BILIRUBIN 1.2 MG/DL (0.0-1.0); TOTAL PROTEIN 5.7 G/DL (6.4-8.3); UREA NITROGEN (BUN) 61 mg/dL (9-23); VANCOMYCIN, TROUGH 20.2 MCG/ML (10-20)
[2017-05-09 11:42] VITALS: BP 128/60
[2017-05-09 15:34] LABS: BASOPHIL (%) 0.3 % (0-1); EOSINOPHIL (%) 1.5 % (0-5); EOSINOPHIL COUNT 0.2 K/uL (0-0.3); HEMATOCRIT 31.7 % (38.0-50.0); HEMOGLOBIN 10.2 G/DL (12.5-16.6); IMMATURE GRANULOCYTE (%) 0.4 % (0.0-0.7); LYMPHOCYTE (%) 4.5 % (15-42); LYMPHOCYTE COUNT 0.5 K/uL (1.0-2.8); MCH 30.9 PG (29.0-34.0); MCHC 32.2 G/DL (30.0-36.0); MCV 96.1 FL (86-99); MONOCYTE (%) 6.2 % (3-12); MONOCYTE COUNT 0.7 K/uL (0-0.8); NEUTROPHIL (%) 87.1 % (45-76); NEUTROPHIL COUNT 10.4 K/uL (1.8-6.4); NRBC (%) 0.5 /100 WBC (0-0); PLATELET COUNT 198 K/uL (156-360); RBC DIS.WIDTH-CV 23.4 % (11.8-14.6); RBC DIS.WIDTH-SD 79.3 % (39-53); WHITE BLOOD COUNT 11.9 K/uL (4.1-10.2)
[2017-05-09 19:55] VITALS: BP 122/60
[2017-05-09 23:30] VITALS: BP 139/63
[2017-05-10 04:31] VITALS: BP 131/68
[2017-05-10 06:12] LABS: HEMATOCRIT 33.8 % (38.0-50.0); HEMOGLOBIN 10.7 G/DL (12.5-16.6); MCH 30.2 PG (29.0-34.0); MCHC 31.7 G/DL (30.0-36.0); MCV 95.5 FL (86-99); NRBC (%) 0.4 /100 WBC (0-0); PLATELET COUNT 155 K/uL (156-360); RBC DIS.WIDTH-CV 23.8 % (11.8-14.6); RBC DIS.WIDTH-SD 80.7 % (39-53); RED BLOOD COUNT 3.54 M/uL (4.00-5.50); WHITE BLOOD COUNT 13.1 K/uL (4.1-10.2)
[2017-05-10 06:50] LABS: ALBUMIN 2.4 G/DL (3.2-4.8); ALKALINE PHOSPHATASE 127 IU/L (3-129); ALT (GPT) 140 IU/L (3-49); AST (GOT) 111 IU/L (2-34); CHLORIDE 97 MEQ/L (99-109); GFR ESTIMATE (CALCULATED) 26 mL/min/ (58.99-99999); GLUCOSE 99 mg/dL (70-99); POTASSIUM 3.9 MEQ/L (3.7-5.4); SODIUM 137 MEQ/L (136-147); TOTAL BILIRUBIN 1.4 MG/DL (0.0-1.0); TOTAL PROTEIN 5.4 G/DL (6.4-8.3); UREA NITROGEN (BUN) 32 mg/dL (9-23); VANCOMYCIN, TROUGH 15.4 MCG/ML (10-20)
[2017-05-10 06:52] LABS: CREATININE 2.6 MG/DL (0.6-1.3)
[2017-05-10 07:43] VITALS: BP 132/68
[2017-05-10 12:11] LABS: INTER. NORMALIZED RATIO 1.5
[2017-05-10 16:23] VITALS: BP 120/70
[2017-05-10 20:45] VITALS: BP 140/70
[2017-05-10 23:20] VITALS: BP 138/88
[2017-05-11 04:37] VITALS: BP 133/58
[2017-05-11 05:27] LABS: HEMOGLOBIN 10.6 G/DL (12.5-16.6); MCH 30.1 PG (29.0-34.0); MCHC 31.2 G/DL (30.0-36.0); MCV 96.6 FL (86-99); NRBC (%) 0.2 /100 WBC (0-0); PLATELET COUNT 179 K/uL (156-360); RBC DIS.WIDTH-CV 24.4 % (11.8-14.6); RBC DIS.WIDTH-SD 82.6 % (39-53); RED BLOOD COUNT 3.52 M/uL (4.00-5.50); WHITE BLOOD COUNT 13.1 K/uL (4.1-10.2)
[2017-05-11 05:56] LABS: ALBUMIN 2.7 G/DL (3.2-4.8); ALKALINE PHOSPHATASE 139 IU/L (3-129); ALT (GPT) 112 IU/L (3-49); AST (GOT) 75 IU/L (2-34); CHLORIDE 97 MEQ/L (99-109); GFR ESTIMATE (CALCULATED) 22 mL/min/ (58.99-99999); GLUCOSE 126 mg/dL (70-99); POTASSIUM 3.4 MEQ/L (3.7-5.4); SODIUM 136 MEQ/L (136-147); TOTAL BILIRUBIN 1.3 MG/DL (0.0-1.0); TOTAL PROTEIN 6.2 G/DL (6.4-8.3); UREA NITROGEN (BUN) 42 mg/dL (9-23)
[2017-05-11 05:57] LABS: VANCOMYCIN, TROUGH 30.8 MCG/ML (10-20)
[2017-05-11 09:01] VITALS: BP 118/76
[2017-05-11 09:10] LABS: INTER. NORMALIZED RATIO 1.4
[2017-05-11 10:34] LABS: MITOCHONDRIAL (M2) ANTIBODIES+ <=20.0 U (<=20.0)
[2017-05-11 11:50] LABS: ANTI-SMOOTH MUSCLE (Actin)+ <20 U (<20)
[2017-05-11 16:00] VITALS: BP 148/76
[2017-05-11 19:59] VITALS: BP 144/72
[2017-05-12 00:02] VITALS: BP 138/74
[2017-05-12 04:35] VITALS: BP 138/62
[2017-05-12 05:25] LABS: HEMATOCRIT 34.7 % (38.0-50.0); HEMOGLOBIN 10.8 G/DL (12.5-16.6); MCH 30.4 PG (29.0-34.0); MCHC 31.1 G/DL (30.0-36.0); MCV 97.7 FL (86-99); PLATELET COUNT 165 K/uL (156-360); RBC DIS.WIDTH-CV 24.5 % (11.8-14.6); RED BLOOD COUNT 3.55 M/uL (4.00-5.50); WHITE BLOOD COUNT 12.1 K/uL (4.1-10.2)
[2017-05-12 05:52] LABS: ALBUMIN 2.7 G/DL (3.2-4.8); ALKALINE PHOSPHATASE 136 IU/L (3-129); ALT (GPT) 89 IU/L (3-49); AST (GOT) 80 IU/L (2-34); CHLORIDE 99 MEQ/L (99-109); GFR ESTIMATE (CALCULATED) 27 mL/min/ (58.99-99999); GLUCOSE 120 mg/dL (70-99); SODIUM 137 MEQ/L (136-147); TOTAL BILIRUBIN 1.1 MG/DL (0.0-1.0); TOTAL PROTEIN 6.2 G/DL (6.4-8.3); UREA NITROGEN (BUN) 29 mg/dL (9-23); VANCOMYCIN, TROUGH 21.6 MCG/ML (10-20)
[2017-05-12 05:54] LABS: CREATININE 2.5 MG/DL (0.6-1.3)
[2017-05-12 07:33] LABS: INTER. NORMALIZED RATIO 1.4
[2017-05-12 07:46] LABS: NO-CHARGE AST (GOT) 71 IU/L (15-37); POTASSIUM 4.3 MEQ/L (3.7-5.4)
[2017-05-12 08:07] VITALS: BP 132/58
[2017-05-12] MEDS ORDERED: LORATADINE10 M2 PO (08:55)
[2017-05-12] MEDS ORDERED: SSD25GM TP (08:55)
[2017-05-12 12:03] VITALS: BP 122/62
[2017-05-12 14:07] LABS: C DIFF TOXIN NEGATIVE (NEGATIVE)
== END 2017-05-12 20:40 | DRG 73 ==
LOC: EME 22:32 → EDOF 05-05 04:30 → 3EAST 05-05 04:30 → ENRESERV 05-05 04:43 → 3EAST 05-05 05:20
PROVIDERS: Emergency Medicine; Family Medicine; Internal Medicine; Internal Medicine Gastroenterology; Internal Medicine Nephrology; Physician Assistant Medical
PROC: 5A1D70Z Performance of Urinary Filtration, Intermittent, Less than 6 Hours Per Day (ICD-10-PCS; principal; 2017-05-06)
DX: E11.42 Type 2 diabetes mellitus with diabetic polyneuropathy (principal); I50.23 Acute on chronic systolic (congestive) heart failure; M86.9 Osteomyelitis, unspecified; N39.0 Urinary tract infection, site not specified; D63.1 Anemia in chronic kidney disease; N18.6 End stage renal disease; E11.621 Type 2 diabetes mellitus with foot ulcer; I48.2 Chronic atrial fibrillation; I25.10 Atherosclerotic heart disease of native coronary artery without angina pectoris; I13.2 Hypertensive heart and chronic kidney disease with heart failure and with stage 5 chronic kidney disease, or end stage renal disease; E11.51 Type 2 diabetes mellitus with diabetic peripheral angiopathy without gangrene; E11.22 Type 2 diabetes mellitus with diabetic chronic kidney disease; E11.69 Type 2 diabetes mellitus with other specified complication; I27.20 Pulmonary hypertension, unspecified; I42.9 Cardiomyopathy, unspecified; E78.5 Hyperlipidemia, unspecified; N40.0 Benign prostatic hyperplasia without lower urinary tract symptoms; E11.21 Type 2 diabetes mellitus with diabetic nephropathy; E55.9 Vitamin D deficiency, unspecified; N25.81 Secondary hyperparathyroidism of renal origin; E66.9 Obesity, unspecified; E88.81 Metabolic syndrome and other insulin resistance; L03.116 Cellulitis of left lower limb; K59.00 Constipation, unspecified; K76.0 Fatty (change of) liver, not elsewhere classified; L97.529 Non-pressure chronic ulcer of other part of left foot with unspecified severity; R13.10 Dysphagia, unspecified; I08.0 Rheumatic disorders of both mitral and aortic valves; E87.2 Acidosis; H40.9 Unspecified glaucoma; M10.9 Gout, unspecified; Z99.2 Dependence on renal dialysis; Z99.81 Dependence on supplemental oxygen; Z95.810 Presence of automatic (implantable) cardiac defibrillator; Z89.422 Acquired absence of other left toe(s); Z95.5 Presence of coronary angioplasty implant and graft; Z82.49 Family history of ischemic heart disease and other diseases of the circulatory system; Z87.891 Personal history of nicotine dependence; Z86.14 Personal history of Methicillin resistant Staphylococcus aureus infection; Z87.442 Personal history of urinary calculi; Z85.820 Personal history of malignant melanoma of skin; Z80.9 Family history of malignant neoplasm, unspecified; Z79.01 Long term (current) use of anticoagulants; Z68.37 Body mass index [BMI] 37.0-37.9, adult; Z79.4 Long term (current) use of insulin; Z91.81 History of falling
CPT/HCPCS: 71045; 76705; 80048; 80053; 80069; 80162; 80202; 81003; 82306; 82948; 83516 90; 83605; 83880; 84100; 84484; 84999; 85025; 85025 91; 85027; 85610; 85730; 86038; 86256 90; 87040; 87086; 87493; 92526 GN; 92610 GN; 93005; 94640; 94640 76; 94799; 97530 GP; 99202; 99281; 99285; C1755; J1644; J1815; J1940; J1956; J2543; J3370; J7050

== ENCOUNTER 2017-05-17 07:25 | Day surgery (SDC) | payer OTHER ==
[~2017-05-17] VITALS: Ht 188 cm; Wt 110.0 kg
[~2017-05-17 07:25] MED LIST changes: +LORATADINE10 M2 PO; +WARFARIN SODIUM1 MG PO
== END 2017-05-17 10:50 ==
LOC: CATH 07:25
DX: T82.41XA Breakdown (mechanical) of vascular dialysis catheter, initial encounter (principal); Y83.2 Surgical operation with anastomosis, bypass or graft as the cause of abnormal reaction of the patient, or of later complication, without mention of misadventure at the time of the procedure; E11.22 Type 2 diabetes mellitus with diabetic chronic kidney disease; N18.6 End stage renal disease; Z99.2 Dependence on renal dialysis; Z79.4 Long term (current) use of insulin; I48.91 Unspecified atrial fibrillation; D64.9 Anemia, unspecified; I50.9 Heart failure, unspecified; Z85.820 Personal history of malignant melanoma of skin; E66.01 Morbid (severe) obesity due to excess calories; Z68.41 Body mass index [BMI] 40.0-44.9, adult; Z79.01 Long term (current) use of anticoagulants
CPT/HCPCS: 87641; C1750; J1644; J2250; J3010; S0020

== ENCOUNTER 2017-06-08 07:08 | Observation (INO) | payer OTHER ==
[~2017-06-08] VITALS: Ht 188 cm; Wt 106.8 kg
[~2017-06-08 07:08] MED LIST changes: -ALPHA LIPOIC A600 MG PO; -OXYBUTYNIN CHLO10 MG PO; +OXYBUTYNIN CHLOR5 MG PO
[2017-06-08 08:01] LABS: HEMATOCRIT 31.1 % (38.0-50.0); MCH 31.5 PG (29.0-34.0); MCHC 32.2 G/DL (30.0-36.0); MCV 98.1 FL (86-99); PLATELET COUNT 241 K/uL (156-360); RBC DIS.WIDTH-CV 20.5 % (11.8-14.6); RBC DIS.WIDTH-SD 74.1 % (39-53); RED BLOOD COUNT 3.17 M/uL (4.00-5.50); WHITE BLOOD COUNT 13.2 K/uL (4.1-10.2)
[2017-06-08 08:05] LABS: BASOPHIL (%) 0.5 % (0-1); BASOPHIL COUNT 0.1 K/uL (0-0.1); EOSINOPHIL (%) 1.1 % (0-5); EOSINOPHIL COUNT 0.2 K/uL (0-0.3); IMMATURE GRANULOCYTE (%) 0.8 % (0.0-0.7); LYMPHOCYTE (%) 9.8 % (15-42); LYMPHOCYTE COUNT 1.3 K/uL (1.0-2.8); MONOCYTE (%) 10.5 % (3-12); MONOCYTE COUNT 1.4 K/uL (0-0.8); NEUTROPHIL (%) 77.3 % (45-76); NEUTROPHIL COUNT 10.2 K/uL (1.8-6.4)
[2017-06-08 08:07] LABS: INTER. NORMALIZED RATIO 1.5
[2017-06-08 08:10] LABS: PTT 31.1 SEC (25-37)
[2017-06-08 08:25] LABS: TROP-I INTERPRETATION NEGATIVE; TROPONIN-I 0.09 ng/mL (0.0-0.30)
[2017-06-08 08:27] LABS: CHLORIDE 93 MEQ/L (99-109); CREATININE 2.3 MG/DL (0.6-1.3); GFR ESTIMATE (CALCULATED) 30 mL/min/ (58.99-99999); POTASSIUM 3.8 MEQ/L (3.7-5.4); SODIUM 132 MEQ/L (136-147); UREA NITROGEN (BUN) 28 mg/dL (9-23)
[2017-06-08 08:28] LABS: GLUCOSE 113 mg/dL (70-99)
[2017-06-08] MEDS ORDERED: LANTUS 3 M100 UNITS1 SC (09:29)
[2017-06-08 09:40] LABS: MAGNESIUM 1.8 mg/dl (1.3-2.7)
[2017-06-08] MEDS ORDERED: BREO ELLIPTA 21 EACH IH (09:47)
[2017-06-08] MEDS ORDERED: ELIQUIS5 MG PO (09:48)
[2017-06-08] MEDS ORDERED: METOLAZONE5 MG PO (09:49)
[2017-06-08] MEDS ORDERED: OMEPRAZOLE20 MG PO (09:53)
[2017-06-08] MEDS ORDERED: SENNA S TABLET1 EACH PO (09:54)
[2017-06-08] MEDS ORDERED: HYDROCODON-ACE1 EAC7 PO (09:55)
[2017-06-08] MEDS ORDERED: ONDANSETRON HCL4 MG PO (09:55)
[2017-06-08] MEDS ORDERED: VANCOMYCIN1 GM/250 M IV (10:07)
[2017-06-08 11:32] VITALS: BP 144/63
[2017-06-08 13:42] LABS: TROP-I INTERPRETATION NEGATIVE; TROPONIN-I 0.07 ng/mL (0.0-0.30)
[2017-06-08 17:00] VITALS: BP 145/65
[2017-06-08 19:28] LABS: TROP-I INTERPRETATION NEGATIVE; TROPONIN-I 0.07 ng/mL (0.0-0.30)
[2017-06-08 19:39] VITALS: BP 109/53
[2017-06-08 23:45] VITALS: BP 125/58
[2017-06-09 04:17] VITALS: BP 138/60
[2017-06-09 07:17] VITALS: BP 118/58
[2017-06-09 10:18] LABS: HEMATOCRIT 30.6 % (38.0-50.0); HEMOGLOBIN 9.7 G/DL (12.5-16.6); MCH 31.4 PG (29.0-34.0); MCHC 31.7 G/DL (30.0-36.0); PLATELET COUNT 210 K/uL (156-360); RBC DIS.WIDTH-CV 21.1 % (11.8-14.6); RBC DIS.WIDTH-SD 77.2 % (39-53); RED BLOOD COUNT 3.09 M/uL (4.00-5.50); WHITE BLOOD COUNT 9.7 K/uL (4.1-10.2)
[2017-06-09 10:46] LABS: CHLORIDE 99 MEQ/L (99-109); GLUCOSE 113 mg/dL (70-99); SODIUM 135 MEQ/L (136-147); UREA NITROGEN (BUN) 13 mg/dL (9-23)
[2017-06-09 10:53] LABS: CREATININE 1.6 MG/DL (0.6-1.3); GFR ESTIMATE (CALCULATED) 46 mL/min/ (58.99-99999); POTASSIUM 4.6 MEQ/L (3.7-5.4)
[2017-06-09 11:32] VITALS: BP 126/64
== END 2017-06-09 14:38 ==
LOC: EME → EDBD 07:08 → EDOF 09:34 → 4SOUTH 09:34 → EDOF 09:34 → ENRESERV 09:39 → EDOF 09:49 → ENRESERV 10:05 → 4SOUTH 11:23 → EDOF 11:23 → 4SOUTH 06-09 12:50
PROVIDERS: Emergency Medicine; Hospitalist
PROC: 5A1D70Z Performance of Urinary Filtration, Intermittent, Less than 6 Hours Per Day (ICD-10-PCS; principal; 2017-06-08)
DX: I47.2 Ventricular tachycardia (principal); Z95.810 Presence of automatic (implantable) cardiac defibrillator; I48.2 Chronic atrial fibrillation; I08.1 Rheumatic disorders of both mitral and tricuspid valves; I27.20 Pulmonary hypertension, unspecified; R60.0 Localized edema; E87.1 Hypo-osmolality and hyponatremia; I13.2 Hypertensive heart and chronic kidney disease with heart failure and with stage 5 chronic kidney disease, or end stage renal disease; I50.9 Heart failure, unspecified; N18.6 End stage renal disease; E11.22 Type 2 diabetes mellitus with diabetic chronic kidney disease; Z99.2 Dependence on renal dialysis; Z79.01 Long term (current) use of anticoagulants; I25.10 Atherosclerotic heart disease of native coronary artery without angina pectoris; Z95.5 Presence of coronary angioplasty implant and graft; Z95.0 Presence of cardiac pacemaker; Z86.14 Personal history of Methicillin resistant Staphylococcus aureus infection; E11.621 Type 2 diabetes mellitus with foot ulcer; Z79.4 Long term (current) use of insulin; J96.10 Chronic respiratory failure, unspecified whether with hypoxia or hypercapnia; Z99.81 Dependence on supplemental oxygen; Z85.820 Personal history of malignant melanoma of skin; Z88.8 Allergy status to other drugs, medicaments and biological substances; Z88.1 Allergy status to other antibiotic agents
CPT/HCPCS: 71045; 80048; 82948; 83735; 84484; 85025; 85027; 85610; 85730; 87641; 93005; 94640; 94640 76; 99281; 99285; C1753; G0257; G0378; J1644; S0028

== ENCOUNTER → 2017-06-30 | Outpatient (CLI) | payer OTHER ==
[~2017-06-30] MED LIST changes: +BREO ELLIPTA 21 EACH IH; +ELIQUIS5 MG PO; +LANTUS 3 M100 UNITS1 SC; +OMEPRAZOLE20 MG PO; +ONDANSETRON HCL4 MG PO; +SENNA S TABLET1 EACH PO; +VANCOMYCIN1 GM/250 M IV; +VENLAFAXINE HCL75 M1 PO
== END ==
LOC: RAD 06-21 14:00 → EDSTATUS 06-21 14:00 → RAD 13:31
PROC: 0W993ZZ Drainage of Right Pleural Cavity, Percutaneous Approach (ICD-10-PCS; principal; 2017-06-30)
DX: J90 Pleural effusion, not elsewhere classified (principal)
CPT/HCPCS: 76942; 87070; 87075; 87205

== ENCOUNTER 2017-07-20 11:42 | Day surgery (SDC) | payer OTHER ==
[~2017-07-20] VITALS: Ht 188 cm; Wt 109.7 kg
[~2017-07-20 11:42] MED LIST changes: +LYRICA75 MG PO
[2017-07-20] MEDS ORDERED: BREO ELLIPTA I1 EACH IH (12:08)
[2017-07-20 12:28] LABS: HEMATOCRIT 31.5 % (38.0-50.0); HEMOGLOBIN 10.3 G/DL (12.5-16.6); MCH 33.4 PG (29.0-34.0); MCHC 32.7 G/DL (30.0-36.0); MCV 102.3 FL (86-99); PLATELET COUNT 288 K/uL (156-360); RBC DIS.WIDTH-CV 19.3 % (11.8-14.6); RBC DIS.WIDTH-SD 72.3 % (39-53); RED BLOOD COUNT 3.08 M/uL (4.00-5.50); WHITE BLOOD COUNT 16.9 K/uL (4.1-10.2)
[2017-07-20 12:34] VITALS: BP 123/60
[2017-07-20 12:47] LABS: CHLORIDE 94 mEq/L (99-109); POTASSIUM 4.3 mEq/L (3.7-5.4); SODIUM 133 mEq/L (136-147)
[2017-07-20 12:48] LABS: GLUCOSE 100 mg/dL (70-99)
[2017-07-20 12:52] LABS: CREATININE 2.4 mg/dL (0.6-1.3); GFR ESTIMATE (CALCULATED) 29 mL/min/ (58.99-99999)
[2017-07-20 12:53] LABS: UREA NITROGEN (BUN) 35 mg/dL (9-23)
[2017-07-20 16:58] VITALS: BP 134/60
== END 2017-07-20 17:39 ==
LOC: SDC 11:42
PROVIDERS: Surgery
DX: I13.2 Hypertensive heart and chronic kidney disease with heart failure and with stage 5 chronic kidney disease, or end stage renal disease (principal); E11.22 Type 2 diabetes mellitus with diabetic chronic kidney disease; N18.6 End stage renal disease; I50.9 Heart failure, unspecified; Z99.2 Dependence on renal dialysis; Z79.4 Long term (current) use of insulin; I48.91 Unspecified atrial fibrillation; Z79.01 Long term (current) use of anticoagulants; D64.9 Anemia, unspecified
CPT/HCPCS: 80048; 82948; 85027; 87641; C1768; J0690; J1644; J2405; J2720; J3010; S0020

== ENCOUNTER → 2017-07-26 | Outpatient (CLI) | payer OTHER ==
[~2017-07-26] MED LIST changes: +BREO ELLIPTA I1 EACH IH
== END | disposition home or self-care (01) ==
LOC: RAD 08:21
DX: J98.11 Atelectasis (principal); I51.7 Cardiomegaly; I70.0 Atherosclerosis of aorta; Z95.810 Presence of automatic (implantable) cardiac defibrillator; Z97.8 Presence of other specified devices; Z98.890 Other specified postprocedural states
CPT/HCPCS: 71250

== ENCOUNTER 2017-08-02 23:19 | Observation (INO) | payer OTHER ==
[~2017-08-02] VITALS: Ht 188 cm; Wt 99.4 kg
[2017-08-03 00:07] LABS: HEMATOCRIT 29.4 % (38.0-50.0); HEMOGLOBIN 9.5 G/DL (12.5-16.6); MCH 33.3 PG (29.0-34.0); MCHC 32.3 G/DL (30.0-36.0); MCV 103.2 FL (86-99); PLATELET COUNT 235 K/uL (156-360); RBC DIS.WIDTH-CV 17.3 % (11.8-14.6); RBC DIS.WIDTH-SD 65.1 % (39-53); RED BLOOD COUNT 2.85 M/uL (4.00-5.50); WHITE BLOOD COUNT 18.3 K/uL (4.1-10.2)
[2017-08-03 00:19] LABS: ALBUMIN 2.8 g/dL (3.2-4.8); CHLORIDE 93 mEq/L (99-109); POTASSIUM 3.2 mEq/L (3.7-5.4); SODIUM 134 mEq/L (136-147)
[2017-08-03 00:22] LABS: GLUCOSE 151 mg/dL (70-99); TOTAL PROTEIN 6.9 g/dL (6.4-8.3)
[2017-08-03 00:24] LABS: TOTAL BILIRUBIN 0.5 mg/dL (0.0-1.0)
[2017-08-03 00:25] LABS: ALKALINE PHOSPHATASE 115 IU/L (3-129); CREATININE 3.1 mg/dL (0.6-1.3); GFR ESTIMATE (CALCULATED) 21 mL/min/ (58.99-99999)
[2017-08-03 00:26] LABS: UREA NITROGEN (BUN) 39 mg/dL (9-23)
[2017-08-03 00:27] LABS: AST (GOT) 18 IU/L (2-34)
[2017-08-03 00:28] LABS: ALT (GPT) 10 IU/L (3-49)
[2017-08-03 00:31] LABS: TROP-I INTERPRETATION NEGATIVE; TROPONIN-I 0.08 ng/mL (0.0-0.30)
[2017-08-03 00:35] LABS: DIGOXIN 1.5 ng/mL (0.8-2.0)
[2017-08-03 02:17] LABS: APPEARANCE SL.HAZY ((CLEAR)); BILIRUBIN NEGATIVE; BLOOD MODERATE; COLOR AMBER ((YELLOW)); GLUCOSE (STRIP) NEGATIVE; KETONES NEGATIVE; LEUKOCYTES TRACE; NITRITE NEGATIVE; PROTEIN (STRIP) 30; UROBILINOGEN 0.2 MG/DL (0.2-1.0)
[2017-08-03 02:21] LABS: BACTERIA RARE /HPF; EPITHELIAL CELLS RARE /HPF; HYALINE CASTS TNTC /LPF; MUCUS TRACE /LPF; RED BLOOD CELLS TNTC /HPF (0-5); UCUL ADDED? YES; WHITE BLOOD CELLS 15-20 /HPF (0-5)
[2017-08-03 02:52] LABS: INTER. NORMALIZED RATIO 1.9
[2017-08-03 02:54] LABS: PTT 28.9 SEC (25-37)
[2017-08-03 03:49] VITALS: BP 120/58
[2017-08-03 08:03] LABS: BASOPHIL (%) 0.3 % (0-1); BASOPHIL COUNT 0.1 K/uL (0-0.1); EOSINOPHIL (%) 2.4 % (0-5); EOSINOPHIL COUNT 0.4 K/uL (0-0.3); LYMPHOCYTE (%) 7.8 % (15-42); LYMPHOCYTE COUNT 1.4 K/uL (1.0-2.8); MONOCYTE (%) 9.2 % (3-12); MONOCYTE COUNT 1.6 K/uL (0-0.8); NEUTROPHIL (%) 79.3 % (45-76); NEUTROPHIL COUNT 13.8 K/uL (1.8-6.4)
[2017-08-03 08:06] VITALS: BP 126/60
[2017-08-03] MEDS ORDERED: NATURAL BALANCE15 M1 BOTH EYES (09:10)
[2017-08-03 12:22] LABS: HEMATOCRIT 25.7 % (38.0-50.0); HEMOGLOBIN 8.1 G/DL (12.5-16.6); MCH 32.7 PG (29.0-34.0); MCHC 31.5 G/DL (30.0-36.0); MCV 103.6 FL (86-99); NRBC (%) 0.1 /100 WBC (0-0); PLATELET COUNT 259 K/uL (156-360); RBC DIS.WIDTH-CV 17.2 % (11.8-14.6); RBC DIS.WIDTH-SD 65.3 % (39-53); RED BLOOD COUNT 2.48 M/uL (4.00-5.50); WHITE BLOOD COUNT 18.8 K/uL (4.1-10.2)
[2017-08-03 12:42] LABS: TROP-I INTERPRETATION NEGATIVE; TROPONIN-I 0.08 ng/mL (0.0-0.30)
[2017-08-03 15:10] LABS: BASOPHIL (%) 0.4 % (0-1); BASOPHIL COUNT 0.1 K/uL (0-0.1); EOSINOPHIL (%) 3.5 % (0-5); EOSINOPHIL COUNT 0.6 K/uL (0-0.3); HEMATOCRIT 28.2 % (38.0-50.0); HEMOGLOBIN 8.8 G/DL (12.5-16.6); IMMATURE GRANULOCYTE (%) 0.9 % (0.0-0.7); LYMPHOCYTE (%) 9.7 % (15-42); LYMPHOCYTE COUNT 1.6 K/uL (1.0-2.8); MCH 32.5 PG (29.0-34.0); MCHC 31.2 G/DL (30.0-36.0); MCV 104.1 FL (86-99); MONOCYTE COUNT 1.5 K/uL (0-0.8); NEUTROPHIL (%) 76.5 % (45-76); NEUTROPHIL COUNT 12.4 K/uL (1.8-6.4); PLATELET COUNT 237 K/uL (156-360); RBC DIS.WIDTH-CV 17.3 % (11.8-14.6); RBC DIS.WIDTH-SD 66.5 % (39-53); RED BLOOD COUNT 2.71 M/uL (4.00-5.50); WHITE BLOOD COUNT 16.2 K/uL (4.1-10.2)
[2017-08-03 15:20] LABS: ALBUMIN 2.6 G/DL (3.2-4.8); CHLORIDE 93 MEQ/L (99-109); POTASSIUM 3.2 MEQ/L (3.7-5.4); SODIUM 132 MEQ/L (136-147)
[2017-08-03 15:25] LABS: CREATININE 3.2 MG/DL (0.6-1.3); GFR ESTIMATE (CALCULATED) 21 mL/min/ (58.99-99999); GLUCOSE 145 mg/dL (70-99); PHOSPHORUS 3.3 mg/dL (2.5-4.9); UREA NITROGEN (BUN) 42 mg/dL (9-23)
== END 2017-08-03 20:46 ==
LOC: EME → EDBD 23:19 → EME 23:19 → EDOF 08-03 02:01 → 4SOUTH 08-03 02:01 → EDOF 08-03 02:01 → ENRESERV 08-03 02:02 → 4SOUTH 08-03 03:12
PROVIDERS: Emergency Medicine; Hospitalist; Internal Medicine; Internal Medicine Nephrology; Physician Assistant Medical
DX: I47.2 Ventricular tachycardia (principal); Z95.810 Presence of automatic (implantable) cardiac defibrillator; E87.6 Hypokalemia; I42.9 Cardiomyopathy, unspecified; I25.10 Atherosclerotic heart disease of native coronary artery without angina pectoris; Z95.5 Presence of coronary angioplasty implant and graft; I48.2 Chronic atrial fibrillation; I13.2 Hypertensive heart and chronic kidney disease with heart failure and with stage 5 chronic kidney disease, or end stage renal disease; I50.22 Chronic systolic (congestive) heart failure; N18.6 End stage renal disease; Z99.2 Dependence on renal dialysis; D63.1 Anemia in chronic kidney disease; E78.5 Hyperlipidemia, unspecified; D72.829 Elevated white blood cell count, unspecified; S81.802A Unspecified open wound, left lower leg, initial encounter; L89.890 Pressure ulcer of other site, unstageable; L89.512 Pressure ulcer of right ankle, stage 2; Z86.14 Personal history of Methicillin resistant Staphylococcus aureus infection; Z79.01 Long term (current) use of anticoagulants; Z85.820 Personal history of malignant melanoma of skin; E11.22 Type 2 diabetes mellitus with diabetic chronic kidney disease; E11.51 Type 2 diabetes mellitus with diabetic peripheral angiopathy without gangrene; E11.69 Type 2 diabetes mellitus with other specified complication; E83.42 Hypomagnesemia; Z83.3 Family history of diabetes mellitus; Z79.4 Long term (current) use of insulin; I27.20 Pulmonary hypertension, unspecified; I08.3 Combined rheumatic disorders of mitral, aortic and tricuspid valves; E66.01 Morbid (severe) obesity due to excess calories; Z87.891 Personal history of nicotine dependence; Z88.8 Allergy status to other drugs, medicaments and biological substances; Z88.1 Allergy status to other antibiotic agents
CPT/HCPCS: 71045; 71250; 73610; 80053; 80069; 80162; 81003; 82948; 83605; 83735; 84484; 85025; 85027; 85610; 85730; 87040; 87086; 87641; 93005; 94640; 94640 76; 94799; 99281; 99285; A6260; G0257; G0378; J1644

== ENCOUNTER → 2017-08-11 | Outpatient (CLI) | payer OTHER ==
[~2017-08-11] MED LIST changes: +NATURAL BALANCE15 M1 BOTH EYES
== END ==
LOC: NUC 09:57
DX: L08.9 Local infection of the skin and subcutaneous tissue, unspecified (principal); N32.89 Other specified disorders of bladder; Z95.810 Presence of automatic (implantable) cardiac defibrillator
CPT/HCPCS: 78315; A9503

== ENCOUNTER → 2017-08-19 | Outpatient (CLI) | payer OTHER | LOC: RAD 13:00 | PROC: 0W993ZZ Drainage of Right Pleural Cavity, Percutaneous Approach (ICD-10-PCS; principal; 2017-08-19) | DX: J90 Pleural effusion, not elsewhere classified (principal) | CPT/HCPCS: 76942 ==

== ENCOUNTER → 2017-08-26 | Outpatient (CLI) | payer OTHER | END | disposition home or self-care (01) | LOC: AMB 09:30 | PROC: 02PYX3Z Removal of Infusion Device from Great Vessel, External Approach (ICD-10-PCS; principal; 2017-08-26) | DX: Z45.2 Encounter for adjustment and management of vascular access device (principal); N18.6 End stage renal disease ==

== ENCOUNTER → 2017-09-06 | Outpatient (CLI) | payer OTHER | END | disposition home or self-care (01) | LOC: NUC 06:12 | DX: R93.7 Abnormal findings on diagnostic imaging of other parts of musculoskeletal system (principal); Z98.890 Other specified postprocedural states | CPT/HCPCS: 78102; 78805; 78999; A9541; A9570; J1644 ==

== ENCOUNTER → 2017-10-03 | Outpatient (CLI) | payer OTHER | END | disposition home or self-care (01) | LOC: RAD 10:48 | DX: J90 Pleural effusion, not elsewhere classified (principal); J98.11 Atelectasis; I09.89 Other specified rheumatic heart diseases; I27.21 Secondary pulmonary arterial hypertension; J98.4 Other disorders of lung | CPT/HCPCS: 71250 ==